=== PATIENT | female | born 1965 | race Caucasian/White ===

== ENCOUNTER 2018-07-24 15:59 | Inpatient (IN) | payer MEDICARE ==
[~2018-07-24] VITALS: Ht 167.6 cm; Wt 93.0 kg
[~2018-07-24 15:59] MED LIST: [UNRECOGNIZED DRUG - CODE] PO
[2018-07-24] MEDS ORDERED: EST2 PO (17:48)
[2018-07-24] MEDS ORDERED: OXYC30TA PO (17:48)
[2018-07-24] MEDS ORDERED: SPIR100T4 PO (17:49)
[2018-07-24] MEDS ORDERED: MORP15TA92 PO (17:49)
[2018-07-24] MEDS ORDERED: MORP-58 PO (17:50)
[2018-07-24] MEDS ORDERED: oxyCODONE (CR) 15 MG TAB [oxyCONTIN] PO ONE (18:30)
[2018-07-24] MEDS ORDERED: ACETAMINOPHEN 325 MG TAB PO PRN (19:30)
[2018-07-24] MEDS ORDERED: ONDANSETRON 4 MG INJ IV PRN (19:30)
[2018-07-24 21:37] VITALS: BP 85/54; PULSE 71; RESP 20
[2018-07-24] MEDS ORDERED: SOD CHLORIDE 0.9% 500 ML IV ONE (22:00)
[2018-07-24 23:40] VITALS: BP 83/50; PULSE 67; RESP 20
[2018-07-24] MEDS ORDERED: KETOROLAC 30 MG INJ IV ONE (23:46)
--- NOTE | 2018-07-24 23:51 | ERD ---
ER Documentation Chief Complaint Chief Complaint pt bib self with c/o fell asleep in car at 1 am, woke up 3 hrs ago HPI 53-year-old male to female transgender patient brought in by herself complaining of falling asleep in the car early Thursday morning at 1 AM. She remembers dropping a friend off at home and then feeling very tired. She pulled over to take a nap. She did not wake up until today afternoon. She does not know exactly what happened. She denies using any drugs, overdosing on her medications, or drinking that evening. When she woke up, she felt like she was having difficulty speaking and felt like her right side was more weak than usual. She is not feeling her normal self and she is not sure exactly why she slept for over 24 hours without waking up. He is presenting for evaluation for this. Denies any headache, chest pain, shortness of breath, fever or chills. ROS All systems reviewed and are negative except as per history of present illness. Medications Home Meds Reported Medications Morphine Sulfate* (Oramorph SR*) 30 Mg Tablet.sa, 30 MG PO Q12, TAB.SA 07/24/18 Spironolactone* (Spironolactone*) 100 Mg Tablet, 200 MG PO DAILY, TAB 07/24/18 Estradiol* (Estrace*) 2 Mg Tab, 8 MG PO DAILY, TAB 07/24/18 Oxycodone Hcl* (IR) (Oxycodone Hcl*) 30 Mg Tablet, 30 MG PO TID PRN for PAIN, TAB 07/24/18 Discontinued Reported Medications Morphine Sulfate* (Ms Contin*) 15 Mg Tablet.sa, 15 MG PO Q12, TAB 07/24/18 Allergies Allergies: Uncoded Allergies: ANTI NAUSEA MEDS (Allergy, Unknown, 07/24/18) PAIN MEDS (Allergy, Unknown, 07/24/18) codein (Allergy, Unknown, 07/24/18) PMhx/Soc History of Surgery: Yes (appendectomy, hernia mesh, gall bladder removal) Anesthesia Reaction: No Hx Neurological Disorder: Yes (Left craniotomy, traumatic subdural hematoma, reflex sympathetic dystrophy) Hx Respiratory Disorders: No Hx Cardiac Disorders: Yes (low BP 80's systolic) Hx Psychiatric Problems: No Hx Miscellaneous Medical Probl: Yes (sciatica, chronic pain) Hx Alcohol Use: No Hx Substance Use: No Hx Tobacco Use: No Smoking Status: Never smoker FmHx Family History: No diabetes Physical Exam Vitals Vital Signs Date Temp Pulse Resp B/P (MAP) Pulse Ox O2 O2 Flow FiO2 Time Delivery Rate 07/24/18 98.7 71 18 109/88 100 Room Air 18:20 (95) 07/24/18 82 18 106/67 97 Room Air 17:17 (80) 07/24/18 96.3 98 18 131/80 98 16:07 (97) Physical Exam Const: No acute distress Head: Atraumatic Eyes: Normal Conjunctiva, PERRLA, EOMI ENT: Normal External Ears, Nose and Mouth. Neck: Full range of motion. No meningismus. Resp: Clear to auscultation bilaterally Cardio: Regular rate and rhythm, no murmurs. 2+ distal pulses Abd: Soft, non tender, non distended. Normal bowel sounds Skin: No petechiae or rashes Back: No midline or flank tenderness Ext: No cyanosis, or edema Neur: Awake and alert, oriented x3. Mild right-sided facial droop with smi ling. Otherwise all other cranial nerves appear to be intact. Normal speech, no obvious dysarthria or expressive aphasia. Strength 5 out of 5 in left upper and lower extremity. Strength 3 out of 5 in right upper extremity. Strength 4 out of 5 in right lower extremity. Sensations grossly intact. Psych: Normal Mood and Affect Result Diagram: 07/24/18 1740 07/24/18 1740 Results 24 hrs Laboratory Tests Test 07/24/18 17:40 07/24/18 17:41 07/24/18 17:50 White Blood Count 10.1 10^3/ul Red Blood Count 4.14 10^6/ul Hemoglobin 12.9 g/dl Hematocrit 39.3 % Mean Corpuscular Volume 94.9 fl Mean Corpuscular Hemoglobin 31.2 pg Mean Corpuscular 32.8 g/dl Hemoglobin Concent Red Cell Distribution Width 13.9 % Platelet Count 363 10^3/UL Mean Platelet Volume 9.3 fl Immature Granulocytes % 0.800 % Neutrophils % 74.6 % Lymphocytes % 15.7 % Monocytes % 7.6 % Eosinophils % 1.0 % Basophils % 0.3 % Nucleated Red Blood Cells % 0.0 /100WBC Immature Granulocytes # 0.080 10^3/ul Neutrophils # 7.5 10^3/ul Lymphocytes # 1.6 10^3/ul Monocytes # 0.8 10^3/ul Eosinophils # 0.1 10^3/ul Basophils # 0.0 10^3/ul Nucleated Red Blood Cells # 0.0 10^3/ul Prothrombin Time 12.5 Sec Prothrombin Time Ratio 1.0 INR International 0.92 Normalized Ratio Activated Partial Thromboplast 27.5 Sec Time Sodium Level 138 mmol/L Potassium Level 3.5 mmol/L Chloride Level 99 mmol/L Carbon Dioxide Level 28 mmol/L Anion Gap 11 Blood Urea Nitrogen 13 mg/dl Creatinine 0.74 mg/dl Est Glomerular Filtrat > 60 mL/min Rate mL/min Glucose Level 92 mg/dl Hemoglobin A1c 5.2 % Calcium Level 9.8 mg/dl Troponin I < 0.012 ng/ml Triglycerides Level 115 mg/dl Cholesterol Level 144 mg/dl LDL Cholesterol, Calculated 93 mg/dl HDL Cholesterol 28 mg/dl Cholesterol/HDL Ratio 5.1 RATIO Bedside Glucose 98 mg/dL Urine Color YELLOW Urine Clarity SLIGHTLY CLOUDY Urine pH 5.0 Urine Specific [place] 1.008 Urine Ketones NEGATIVE mg/dL Urine Nitrite POSITIVE mg/dL Urine Bilirubin NEGATIVE mg/dL Urine Urobilinogen NEGATIVE mg/dL Urine Leukocyte Esterase 2+ Hallie/ul Urine Microscopic RBC 13 /HPF Urine Microscopic WBC 60 /HPF Urine Squamous Epithelial Cells FEW /HPF Urine Hemoglobin 2+ mg/dL Urine Glucose NEGATIVE mg/dL Urine Total Protein NEGATIVE mg/dl Urine Opiates Screen Positive Urine Barbiturates Negative Urine Amphetamines Screen Negative Urine Benzodiazepines Screen Positive Urine Cocaine Screen Negative Urine Cannabinoids Negative Current Medications Medications Dose Sig/Rusty Start Time Status Last (Trade) Ordered Route PRN Stop Time Admin Dose Reason Admin Oxycodone 30 mg ONCE ONCE 07/24/18 DC 07/24/18 HCl PO 18:30 18:40 (Oxycontin) 07/24/18 18:31 Procedures/MDM EMERGENT LABS AND DIAGNOSTIC STUDIES: Lab Results above were reviewed and interpreted by me. CBC: no anemia or evidence of infection CMP: No evidence of electrolyte abnormality, renal failure, hypoglycemia, liver failure, or biliary obstruction Troponin within normal limits, not indicative of cardiac ischemia UA: Findings concerning for possible infection. Patient asymptomatic Urine drug screen positive for benzos and opioids 12-lead EKG was interpreted by Miko Clarke MD: Normal Sinus Rhythm Normal axis Normal intervals No acute ST or T wave changes suggestive of acute ischemia or STEMI. Radiology Results as interpreted by Radiology below were reviewed by Brenda Clarke MD: CT head shows no acute abnormalities, specifically no stroke Chest x-ray shows no acute abnormalities Initial Nursing notes reviewed. Previous Medical Records requested via the Electronic Health Record. EMERGENCY DEPARTMENT COURSE / MEDICAL DECISION MAKING: Patient presents with complaints of sleeping for over 24 hours and right-sided weakness. Since her last known well was well over 24 hours ago, code stroke was not activated. Patient is certainly not a TPA or interventional candidate. She does have some right-sided weakness on exam. CT of the head however did not ricardo w any acute stroke. If she did have a stroke 1 day ago, I would expect to see this on the CT. Otherwise her labs did not show any other significant abnormalities. I do still think the patient would benefit from a MRI and do not feel she is safe for discharge at this time. She will be admitted for further workup. Accepting Care Team: Current data and ongoing care discussed. Time: Time of admission Primary Provider: Dr. Kolb Departure Diagnosis: Primary Impression: Transient alteration of awareness Additional Impression: Right sided weakness Condition: Fair JOSUE CLARKE MD Jul 24, 2018 23:51
--- NOTE | 2018-07-24 23:53 | HP ---
Date/Time of Note Date/Time of Note DATE: 07/24/18 TIME: 23:53 Assessment/Plan VTE Prophylaxis Pharmacological prophylaxis: heparin Lines/Catheters IV Catheter Type (from Nrsg): Saline Lock Assessment/Plan Assessment/Plan 1. Left-sided weakness, excessive sleepiness -Patient reported dropping of her friend and taking or not because was feeling really tired. She woke up 24 hours later in the car. She does take narcotic pain medications. No weakness is probably because she may have slept on one side of her body for prolonged time -Head CT shows old craniotomy, otherwise no acute findings -Monitor in the telemetry unit -will consider brain MRI -PT eval 2. Hypotension: Patient reported that her systolic blood pressure usually runs in the 80s. Patient however presented to ER with a blood pressure of 131/80 -will give IV fluid for now 3. History of SDH, status post left-sided craniotomy: No acute issue. Head CT stable 4. UTI: antibiotic,, IV fluid, follow-up culture results 5. Chronic pain: Continue her home meds Result Diagram: 07/24/18 1740 07/24/18 1740 Results 24hrs Laboratory Tests Test 07/24/18 17:40 07/24/18 17:41 07/24/18 17:50 White Blood Count 10.1 Red Blood Count 4.14 L Hemoglobin 12.9 Hematocrit 39.3 Mean Corpuscular Volume 94.9 Mean Corpuscular Hemoglobin 31.2 Mean Corpuscular 32.8 Hemoglobin Concent Red Cell Distribution Width 13.9 Platelet Count 363 Mean Platelet Volume 9.3 Immature Granulocytes % 0.800 H Neutrophils % 74.6 Lymphocytes % 15.7 Monocytes % 7.6 Eosinophils % 1.0 Basophils % 0.3 Nucleated Red Blood Cells % 0.0 Immature Granulocytes # 0.080 H Neutrophils # 7.5 Lymphocytes # 1.6 Monocytes # 0.8 Eosinophils # 0.1 Basophils # 0.0 Nucleated Red Blood Cells # 0.0 Prothrombin Time 12.5 Prothrombin Time Ratio 1.0 INR International 0.92 Normalized Ratio Activated Partial Thromboplast 27.5 Time Sodium Level 138 Potassium Level 3.5 Chloride Level 99 Carbon Dioxide Level 28 Anion Gap 11 Blood Urea Nitrogen 13 Creatinine 0.74 Est Glomerular Filtrat > 60 Rate mL/min Glucose Level 92 Hemoglobin A1c 5.2 Calcium Level 9.8 Troponin I < 0.012 Triglycerides Level 115 Cholesterol Level 144 LDL Cholesterol, Calculated 93 HDL Cholesterol 28 L Cholesterol/HDL Ratio 5.1 Bedside Glucose 98 Urine Color YELLOW Urine Clarity SLIGHTLY CLOUDY A Urine pH 5.0 Urine Specific [place] 1.008 Urine Ketones NEGATIVE Urine Nitrite POSITIVE A Urine Bilirubin NEGATIVE Urine Urobilinogen NEGATIVE Urine Leukocyte Esterase 2+ H Urine Microscopic RBC 13 H Urine Microscopic WBC 60 H Urine Squamous FEW Epithelial Cells Urine Hemoglobin 2+ H Urine Glucose NEGATIVE Urine Total Protein NEGATIVE Urine Opiates Screen Positive Urine Barbiturates Negative Urine Amphetamines Screen Negative Urine Benzodiazepines Screen Positive Urine Cocaine Screen Negative Urine Cannabinoids Negative HPI/ROS Admit Date/Time Admit Date/Time Jul 24, 2018 at 19:13 Hx of Present Illness This is a 53-year-old male to female transgender with a history of subdural hematoma status post left craniotomy, sciatica, chronic pain, chronic hypotension. Patient presents the ER complaining of right-sided weakness. She said that she dropped of friend and wanted to take a nap because she was very tired. She woke up in her car 24 hours later. Denied slurred speech, facial droop, seizure-like activity. She does however complain of generalized body ache and was asking to take home narcotics. When she initially presented to ER, blood pressure was 131/80, however SBP has since for the most part been in the 80s. She said her systolic blood pressure usually runs in the 80s. Head CT shows old craniotomy otherwise no acute findings. PMH/Family/Social Past Medical History Past Surgical History Past Surgical Hx: other (see hpi) Family History Significant Family History: other Social History Smoking Status: Unknown if ever smoked Drug Use: other Exam Constitutional: other (no acute distress) Eyes: EOMI, PERRL Neck: supple Respiratory: normal air movement Cardiovascular: nl pulses Gastrointestinal: soft Extremities: normal pulses Medications Current Medications Ondansetron HCl (Zofran Inj) 4 mg ER BRIDGE PRN IV NAUSEA/VOMITING; Start 07/24 at 19:30; Stop 07/25/18 at 19:29 Acetaminophen (Tylenol Tab) 650 mg ER BRIDGE PRN PO .MILD PAIN 1-3 OR TEMP; Start 07/24/18 at 19:30; Stop 07/25/18 at 19:29 Coded Allergies: codeine (Unverified Allergy, Unknown, 07/25/18) Uncoded Allergies: ANTI NAUSEA MEDS (Allergy, Unknown, 07/24/18) PAIN MEDS (Allergy, Unknown, 07/24/18) codein (Allergy, Unknown, 07/24/18) Social History Smoking Status: Never smoker Exam/Review of Systems Vital Signs Vitals Vital Signs Date Temp Pulse Resp B/P (MAP) Pulse Ox O2 O2 Flow FiO2 Time Delivery Rate 07/24/18 98.4 67 20 83/50 (61) 96 Room Air 23:40 JUVE PHAN MD Jul 24, 2018 23:53
[2018-07-25] VITALS (11 sets, daily range): BP systolic 84–112; BP diastolic 49–63; PULSE 50–82; RESP 16–18; Ht 167.6 cm; Wt 93.0 kg
[2018-07-25] MEDS ORDERED: oxyCODONE (CR) 15 MG TAB [oxyCONTIN] PO ONE ×2 (01:30)
[2018-07-25] MEDS ORDERED: ONDANSETRON 4 MG INJ IV PRN (04:00)
[2018-07-25] MEDS ORDERED: ACETAMINOPHEN 325 MG TAB PO PRN (04:00)
[2018-07-25] MEDS ORDERED: NACL 0.9% 3 ML SYG IV SCH (04:00)
--- NOTE | 2018-07-25 07:59 | CONDCODE ---
Medicare Criteria-> INP to OBS Patient still in hospital: Yes SI/IS Criteria met: Yes Attending MD agrees w/change: Yes Order entered in Pt. record: Yes Pt. does not meet Inp Criteria: Yes Medicare Inp->Obs Criteria met: Yes UR Phys Advisor eSign required: Yes I personally scribed for ELA MCKNIGHT ([email or web address]) on 07/25/18 at 07:59. Electronically submitted by Jose David Hitchcock Cmt ([facility]). ELA MCKNIGHT Jul 25, 2018 07:59
--- NOTE | 2018-07-25 07:59 | CONDCODE ---
Medicare Criteria-> INP to OBS Patient still in hospital: Yes SI/IS Criteria met: Yes Attending MD agrees w/change: Yes Order entered in Pt. record: Yes Pt. does not meet Inp Criteria: Yes Medicare Inp->Obs Criteria met: Yes UR Phys Advisor eSign required: Yes I personally scribed for YAHAIRA PIMENTEL MD ([email or web address]) on 07/25/18 at 07:59. Electronically submitted by Jose David Hitchcock [facility] ([email or web address]). YAHAIRA PIMENTEL MD Jul 25, 2018 07:59
[2018-07-25] MEDS: CEFTRIAXONE 1 GM/50 ML (PMX) 50 ML IVPB SCH (08:43)
[2018-07-25] MEDS: SPIRONOLACTONE 50 MG TAB PO SCH (08:44)
[2018-07-25] MEDS: ASPIRIN 81 MG TAB PO SCH (08:44)
[2018-07-25] MEDS ORDERED: morphine (ER) 30 MG TAB PO SCH (09:00)
[2018-07-25] MEDS ORDERED: ESTRADIOL 1 MG TAB PO SCH (09:00)
--- NOTE | 2018-07-25 13:52 | PN ---
Date/Time of Note Date/Time of Note DATE: 07/25/18 TIME: 13:43 Assessment/Plan VTE Prophylaxis Risk score (from Nsg)>0 risk: 6 SCD applied (from Nsg): Yes Pharmacological prophylaxis: heparin Lines/Catheters IV Catheter Type (from Nrsg): Saline Lock Assessment/Plan Problems: (1) Right sided weakness Status: Acute Comment: Patient has unilateral weakness which is still persisting. MRI scan is pending and the patient is requesting sedatives to go through the MRI scan specifically requesting 4 mg of lorazepam IV push. I have counseled him that that is a bit more than we would use here but I will give some in preparation for the MRI scan. Regarding the underlying issue assuming the MRI scan is unrevealing and this would be consistent with what had previously been referred to you for Ms. 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 Physical therapy to try and get the patient moving (2) Gender identity disorder in adult Status: Chronic Comment: Patient is undergone gender reassignment surgery both upper and lower. See below (3) [id number] transgender person Status: Chronic Comment: Patient is on an unusual dosing of estrogen and spironolactone as well as on chronic narcotics for chronic pain syndrome. It should be noted that the chronic narcotics for chronic pain syndrome are well-known for shutting off the pituitary FSH LH drive on the gonads of either gender. In addition to this the dosing of spironolactone is done in somebody who still has a manufacturing source of testosterone in this patient is already had an orchiectomy. The dosage of estradiol is being given as the dosage is used in somebody shut off the pituitary FSH LH and some but he still has testicles. That is not the case in this individual I do not believe that this dosing is appropriate. Before I make formalized changes to this and get a check a serum testosterone level however I believe the reason this patient still is. Growth is because they spent so many years as a genetic male that there are hair follicles were sensitized the only way to stop that would be with laser therapy. There is some details to sort out here (4) Chronic pain syndrome Status: Chronic Comment: Under the care of Dr. Christy Jamil as an outpatient. Try to continue the same regimen roughly. Please note the patient reports that they get monthly epidural shots (5) Chronic low back pain with sciatica Status: Chronic Comment: Patient reports they have already been tried on topiramate and gabapentin. Consider for trial of lamotrigine Qualifiers: Back pain laterality: bilateral Sciatica laterality: bilateral sciatica Qualified Codes: M54.42 - Lumbago with sciatica, left side; M54.41 - Lumbago with sciatica, right side; G89.29 - Other chronic pain (6) Chronic neck pain Status: Chronic Comment: Noted and on treatment (7) Osteoarthritis of knees, bilateral Comment: Noted Qualifiers: Osteoarthritis type: primary Qualified Codes: M17.0 - Bilateral primary osteoarthritis of knee (8) Reflex sympathetic dystrophy of left upper extremity Status: Chronic Comment: Patient reports failure with topiramate and gabapentin. We will go ahead and try lamotrigine (9) UTI (urinary tract infection) Status: Acute Comment: Patient was admitted and documented to have UTI on admission by the emergency room doctor but no cultures were sent. We will treat with antibiotics Qualifiers: Urinary tract infection type: acute cystitis Hematuria presence: without hematuria Qualified Codes: N30.00 - Acute cystitis without hematuria Result Diagram: 07/25/18 0515 07/25/18 0515 Results 24hrs Laboratory Tests Test 07/24/18 17:40 07/24/18 17:41 07/24/18 17:50 07/25/18 05:15 White Blood Count 10.1 6.9 # Red Blood Count 4.14 L 3.87 L Hemoglobin 12.9 12.0 Hematocrit 39.3 37.7 Mean Corpuscular 94.9 97.4 Volume Mean Corpuscular 31.2 31.0 Hemoglobin Mean Corpuscular 32.8 31.8 L Hemoglobin Concen t Red Cell 13.9 14.0 Distribution Width Platelet Count 363 329 Mean Platelet 9.3 9.7 Volume Immature 0.800 H 0.900 H Granulocytes % Neutrophils % 74.6 63.1 Lymphocytes % 15.7 25.3 Monocytes % 7.6 8.4 Eosinophils % 1.0 1.9 Basophils % 0.3 0.4 Nucleated Red 0.0 0.0 Blood Cells % Immature 0.080 H 0.060 H Granulocytes # Neutrophils # 7.5 4.4 Lymphocytes # 1.6 1.7 Monocytes # 0.8 0.6 Eosinophils # 0.1 0.1 Basophils # 0.0 0.0 Nucleated Red 0.0 0.0 Blood Cells # Prothrombin Time 12.5 Prothrombin Time 1.0 Ratio INR International 0.92 Normalized Ratio Activated 27.5 Partial Thrombopl ast Time Sodium Level 138 138 Potassium Level 3.5 3.9 Chloride Level 99 107 Carbon Dioxide 28 26 Level Anion Gap 11 5 Blood Urea 13 13 Nitrogen Creatinine 0.74 0.76 Est Glomerular > 60 > 60 Filtrat Rate mL/min Glucose Level 92 101 Hemoglobin A1c 5.2 5.1 Calcium Level 9.8 8.8 Troponin I < 0.012 < 0.012 Triglycerides 115 85 Level Cholesterol Level 144 122 LDL Cholesterol, 93 81 Calculated HDL Cholesterol 28 L 24 L Cholesterol/HDL 5.1 5.0 Ratio Bedside Glucose 98 Urine Color YELLOW Urine Clarity SLIGHTLY CLOUDY A Urine pH 5.0 Urine Specific 1.008 [place] Urine Ketones NEGATIVE Urine Nitrite POSITIVE A Urine Bilirubin NEGATIVE Urine NEGATIVE Urobilinogen Urine Leukocyte 2+ H Esterase Urine Microscopic 13 H RBC Urine Microscopic 60 H WBC Urine Squamous FEW Epithelial Cells Urine Hemoglobin 2+ H Urine Glucose NEGATIVE Urine Total NEGATIVE Protein Urine Opiates Positive Screen Urine Negative Barbiturates Urine Negative Amphetamines Screen Urine Positive Benzodiazepines Screen Urine Cocaine Negative Screen Urine Negative Cannabinoids Magnesium Level 2.0 Total Bilirubin 0.2 Direct Bilirubin 0.00 Indirect 0.2 Bilirubin Aspartate Amino 14 L Transf (AST/SGOT) Alanine 17 Aminotransferase (ALT/SGPT) Alkaline 49 Phosphatase Creatine Kinase 50 Creatine Kinase 0.6 Index Creatinine Kinase 0.32 MB (Mass) Total Protein 5.8 L Albumin 3.3 Globulin 2.50 Albumin/Globulin 1.32 Ratio Thyroid 0.579 Stimulating Hormone (TSH) Test 07/25/18 10:30 Creatine Kinase 42 Creatine Kinase 0.5 Index Creatinine Kinase < 0.22 MB (Mass) Troponin I < 0.012 Subjective 24 Hr Interval Summary Free Text/Dictation Patient reports that she is having persistent pain from the chronic pain syndrome, as well as inability to adequately move and ambulate the side of body affected by the admission event Constitutional: no complaints (Denies fevers chills or sweats) Respiratory: no complaints (No cough no wheezing no shortness of breath) Cardiovascular: no complaints (Chest pain no palpitations no PND no orthopnea) Gastrointestinal: no complaints Genitourinary: no complaints Musculoskeletal: back pain (Chronic back pain, chronic neck pain), neck pain, other (Chronic left shoulder pain with reflex sympathetic dystrophy) Neurologic: other (Unilateral weakness without change) Exam/Review of Systems Exam Vitals Vital Signs Date Temp Pulse Resp B/P (MAP) Pulse Ox O2 O2 Flow FiO2 Time Delivery Rate 07/25/18 50 12:12 07/25/18 97.8 16 95/63 (74) 100 11:32 07/24/18 Room Air 23:40 Intake and Output 07/24/18 07/24/18 07/25/18 1515:00 23:00 07:00 IntakeIntake Total 1300 ml BalanceBalance 1300 ml Constitutional: alert, oriented Head: normocephalic, atraumatic Neck: supple, non-tender Respiratory: clear to auscultation, normal air movement, other (Breast implants noted) Cardiovascular: regular rate and rhythm, nl pulses Gastrointestinal: soft, nl liver, spleen, non-tender Genitourinary - Female: other Results Results 24hrs Laboratory Tests Test 07/24/18 17:40 07/24/18 17:41 07/24/18 17:50 07/25/18 05:15 White Blood Count 10.1 6.9 # Red Blood Count 4.14 L 3.87 L Hemoglobin 12.9 12.0 Hematocrit 39.3 37.7 Mean Corpuscular 94.9 97.4 Volume Mean Corpuscular 31.2 31.0 Hemoglobin Mean Corpuscular 32.8 31.8 L Hemoglobin Concen t Red Cell 13.9 14.0 Distribution Width Platelet Count 363 329 Mean Platelet 9.3 9.7 Volume Immature 0.800 H 0.900 H Granulocytes % Neutrophils % 74.6 63.1 Lymphocytes % 15.7 25.3 Monocytes % 7.6 8.4 Eosinophils % 1.0 1.9 Basophils % 0.3 0.4 Nucleated Red 0.0 0.0 Blood Cells % Immature 0.080 H 0.060 H Granulocytes # Neutrophils # 7.5 4.4 Lymphocytes # 1.6 1.7 Monocytes # 0.8 0.6 Eosinophils # 0.1 0.1 Basophils # 0.0 0.0 Nucleated Red 0.0 0.0 Blood Cells # Prothrombin Time 12.5 Prothrombin Time 1.0 Ratio INR International 0.92 Normalized Ratio Activated 27.5 Partial Thrombopl ast Time Sodium Level 138 138 Potassium Level 3.5 3.9 Chloride Level 99 107 Carbon Dioxide 28 26 Level Anion Gap 11 5 Blood Urea 13 13 Nitrogen Creatinine 0.74 0.76 Est Glomerular > 60 > 60 Filtrat Rate mL/min Glucose Level 92 101 Hemoglobin A1c 5.2 5.1 Calcium Level 9.8 8.8 Troponin I < 0.012 < 0.012 Triglycerides 115 85 Level Cholesterol Level 144 122 LDL Cholesterol, 93 81 Calculated HDL Cholesterol 28 L 24 L Cholesterol/HDL 5.1 5.0 Ratio Bedside Glucose 98 Urine Color YELLOW Urine Clarity SLIGHTLY CLOUDY A Urine pH 5.0 Urine Specific 1.008 [place] Urine Ketones NEGATIVE Urine Nitrite POSITIVE A Urine Bilirubin NEGATIVE Urine NEGATIVE Urobilinogen Urine Leukocyte 2+ H Esterase Urine Microscopic 13 H RBC Urine Microscopic 60 H WBC Urine Squamous FEW Epithelial Cells Urine Hemoglobin 2+ H Urine Glucose NEGATIVE Urine Total NEGATIVE Protein Urine Opiates Positive Screen Urine Negative Barbiturates Urine Negative Amphetamines Screen Urine Positive Benzodiazepines Screen Urine Cocaine Negative Screen Urine Negative Cannabinoids Magnesium Level 2.0 Total Bilirubin 0.2 Direct Bilirubin 0.00 Indirect 0.2 Bilirubin Aspartate Amino 14 L Transf (AST/SGOT) Alanine 17 Aminotransferase (ALT/SGPT) Alkaline 49 Phosphatase Creatine Kinase 50 Creatine Kinase 0.6 Index Creatinine Kinase 0.32 MB (Mass) Total Protein 5.8 L Albumin 3.3 Globulin 2.50 Albumin/Globulin 1.32 Ratio Thyroid 0.579 Stimulating Hormone (TSH) Test 07/25/18 10:30 Creatine Kinase 42 Creatine Kinase 0.5 Index Creatinine Kinase < 0.22 MB (Mass) Troponin I < 0.012 Medications Medication Current Medications Ondansetron HCl (Zofran Inj) 4 mg ER BRIDGE PRN IV NAUSEA/VOMITING; Start 07/24/18 at 19:30; Stop 07/25/18 at 19:29 Acetaminophen (Tylenol Tab) 650 mg ER BRIDGE PRN PO .MILD PAIN 1-3 OR TEMP; Start 07/24/18 at 19:30; Stop 07/25/18 at 19:29 IV Flush (NS 3 ml) 3 ml PER PROTOCOL IV ; Start 07/25/18 at 04:00 Ondansetron HCl (Zofran Inj) 4 mg Q6H PRN IV NAUSEA/VOMITING; Start 07/25/18 at 04:00 Aspirin (Aspirin) 81 mg DAILY PO Last administered on 07/25/18at 08:44; Admin Dose 81 MG; Start 07/25/18 at 09:00 Acetaminophen (Tylenol Tab) 650 mg Q6H PRN PO .PAIN 1-3 OR TEMP; Start 07/25/18 at 04:00 Morphine Sulfate (Ms Contin (Er)) 30 mg Q12 PO ; Start 07/25/18 at 09:00 Spironolactone (Aldactone) 200 mg DAILY PO Last administered on 07/25/18at 08:44; Admin Dose 200 MG; Start 07/25/18 at 09:00 Estradiol (Estrace) 8 mg DAILY PO Last administered on 07/25/18at 08:45; Admin Dose 8 MG; Start 07/25/18 at 09:00 Ceftriaxone Sodium 50 ml @ 100 mls/hr DAILY IVPB Last administered on 07/25/18at 08:43; Admin Dose 100 MLS/HR; Start 07/25/18 at 09:00 SHAHAB VARGAS MD Jul 25, 2018 13:52
[2018-07-25] MEDS: LAMOTRIGINE 25 MG TAB PO SCH ×2 (14:59→20:37)
[2018-07-25] MEDS ORDERED: FOSFOMYCIN 3 GM PACKET PO ONE (15:00)
[2018-07-25] MEDS: oxyCODONE (CR) 15 MG TAB [oxyCONTIN] PO SCH ×2 (15:00→20:38)
[2018-07-25] MEDS: LORAZEPAM 2 MG INJ IV SCH (15:20)
[2018-07-25] MEDS: oxyCODONE 15 MG TAB PO PRN ×2 (17:55→22:10)
[2018-07-25] MEDS: ESTRADIOL 1 MG TAB PO SCH (20:37)
[2018-07-26] VITALS (10 sets, daily range): BP systolic 98–112; BP diastolic 54–59; PULSE 49–84; RESP 18
[2018-07-26] MEDS: oxyCODONE 15 MG TAB PO PRN ×4 (06:06→23:56)
[2018-07-26] MEDS: CEFTRIAXONE 1 GM/50 ML (PMX) 50 ML IVPB SCH (08:32)
[2018-07-26] MEDS: LAMOTRIGINE 25 MG TAB PO SCH ×2 (08:33→20:21)
[2018-07-26] MEDS: SPIRONOLACTONE 50 MG TAB PO SCH (08:33)
[2018-07-26] MEDS: ASPIRIN 81 MG TAB PO SCH (08:33)
[2018-07-26] MEDS: ESTRADIOL 1 MG TAB PO SCH ×2 (08:34→20:20)
[2018-07-26] MEDS: oxyCODONE (CR) 15 MG TAB [oxyCONTIN] PO SCH ×2 (08:36→20:21)
[2018-07-26] MEDS: LORAZEPAM 2 MG INJ IV SCH (14:00)
--- NOTE | 2018-07-26 14:05 | PN ---
Date/Time of Note Date/Time of Note DATE: 07/26/18 TIME: 13:52 Assessment/Plan VTE Prophylaxis Risk score (from Ns)>0 risk: 7 SCD applied (from Ns): Yes Pharmacological prophylaxis: LMWH Lines/Catheters IV Catheter Type (from Nrs): Saline Lock Assessment/Plan Assessment/Plan 1. Right sided weakness, unremarkable CT and MRI brain, neurology consultation, echo/carotid US 2. Sinus bradycardia, TSH 3. UTI, treated with fosfomycin 4. H/o head trauma, status post left-sided craniotomy: No acute issue 5. Male to female transgender person, on estrogen and spironolactone 6. Chronic pain syndrome, Under the care of Dr. Christy Jamil as an outpatient Result Diagram: 07/26/1853807/26/1839 Results 24hrs Laboratory Tests Test 07/26/18 05:39 White Blood Count 7.8 Red Blood Count 4.05 L Hemoglobin 12.5 Hematocrit 39.2 Mean Corpuscular Volume 96.8 Mean Corpuscular Hemoglobin 30.9 Mean Corpuscular Hemoglobin Concent 31.9 L Red Cell Distribution Width 13.8 Platelet Count 325 Mean Platelet Volume 9.6 Immature Granulocytes % 0.800 H Neutrophils % 63.9 Lymphocytes % 24.7 Monocytes % 7.8 Eosinophils % 2.3 Basophils % 0.5 Nucleated Red Blood Cells % 0.0 Immature Granulocytes # 0.060 H Neutrophils # 5.0 Lymphocytes # 1.9 Monocytes # 0.6 Eosinophils # 0.2 Basophils # 0.0 Nucleated Red Blood Cells # 0.0 Sodium Level 139 Potassium Level 4.2 Chloride Level 104 Carbon Dioxide Level 26 Anion Gap 9 Blood Urea Nitrogen 16 Creatinine 0.70 Est Glomerular Filtrat Rate mL/min > 60 Glucose Level 84 Calcium Level 9.2 Phosphorus Level 4.3 Magnesium Level 1.9 Subjective 24 Hr Interval Summary Free Text/Dictation still with right side weakness Exam/Review of Systems Exam Vitals Vital Signs Date Temp Pulse Resp B/P (MAP) Pulse Ox O2 O2 Flow FiO2 Time Delivery Rate 07/26/18 49 12:00 07/26/18 97.6 18 101/55 95 Room Air 07:22 (70) Intake and Output 07/25/18 07/25/18 07/26/18 1515:00 23:00 07:00 IntakeIntake Total 1250 ml 480 ml BalanceBalance 1250 ml 480 ml Constitutional: alert, oriented, well developed, obese Head: normocephalic, atraumatic Eyes: nl conjunctiva, EOMI, nl lids, PERRL ENMT: nl external ears & nose, nl lips & teeth, nl nasal mucosa & septum Neck: supple, non-tender Respiratory: clear to auscultation, normal air movement; No congested cough, No crackles/rales, No diminished breath sounds, No intercostal retraction, No labored breathing, No respirations, No tactile fremitus, No wheezing, No other Cardiovascular: regular rate and rhythm, nl pulses; No bruits, No diastolic murmur, No edema, No gallop, No irregular rhythm, No jugular venous distention (JVD), No murmurs/extra sounds, No rub, No systolic murmur, No S3, No S4, No other Gastrointestinal: soft, nl liver, spleen, non-tender Musculoskeletal: nl extremities to inspection Extremities: normal pulses; No calf tenderness, No cyanosis, No clubbing, No edema, No pitting pedal edema, No palpable cord, No tenderness, No other Neurological: [employer] II-XII intact, nl mental status, nl speech, other (4/5 RUE, 3/5 RLE) Results Results 24hrs Laboratory Tests Test 07/26/18 05:39 White Blood Count 7.8 Red Blood Count 4.05 L Hemoglobin 12.5 Hematocrit 39.2 Mean Corpuscular Volume 96.8 Mean Corpuscular Hemoglobin 30.9 Mean Corpuscular Hemoglobin Concent 31.9 L Red Cell Distribution Width 13.8 Platelet Count 325 Mean Platelet Volume 9.6 Immature Granulocytes % 0.800 H Neutrophils % 63.9 Lymphocytes % 24.7 Monocytes % 7.8 Eosinophils % 2.3 Basophils % 0.5 Nucleated Red Blood Cells % 0.0 Immature Granulocytes # 0.060 H Neutrophils # 5.0 Lymphocytes # 1.9 Monocytes # 0.6 Eosinophils # 0.2 Basophils # 0.0 Nucleated Red Blood Cells # 0.0 Sodium Level 139 Potassium Level 4.2 Chloride Level 104 Carbon Dioxide Level 26 Anion Gap 9 Blood Urea Nitrogen 16 Creatinine 0.70 Est Glomerular Filtrat Rate mL/min > 60 Glucose Level 84 Calcium Level 9.2 Phosphorus Level 4.3 Magnesium Level 1.9 Medications Medication Current Medications IV Flush (NS 3 ml) 3 ml PER PROTOCOL IV ; Start 07/25/18 at 04:00 Ondansetron HCl (Zofran Inj) 4 mg Q6H PRN IV NAUSEA/VOMITING; Start 07/25/18 at 04:00 Aspirin (Aspirin) 81 mg DAILY PO Last administered on 07/26/18 08:33; Admin Dose 81 MG; Start 07/25/18 at 09:00 Acetaminophen (Tylenol Tab) 650 mg Q6H PRN PO .PAIN 1-3 OR TEMP; Start 07/25/18 at 04:00 Spironolactone (Aldactone) 200 mg DAILY PO Last administered on 07/26/18 08:33; Admin Dose 200 MG; Start 07/25/18 at 09:00 Ceftriaxone Sodium 50 ml @ 100 mls/hr DAILY IVPB Last administered on 07/26/18 08:32; Admin Dose 100 MLS/HR; Start 07/25/18 at 09:00 Estradiol (Estrace) 1 mg BID PO Last administered on 07/26/18 08:34; Admin Dose 1 MG; Start 07/25/18 at 21:00 Lorazepam (Ativan) 2 mg ONCE IV Last administered on 07/25/18 15:20; Admin Dose 2 MG; Start 07/25/18 at 14:00; Stop 07/26/18 at 23:00 Lamotrigine (Lamictal) 25 mg BID PO Last administered on 07/26/18 08:33; Admin Dose 25 MG; Start 07/25/18 at 14:00 Oxycodone HCl (Roxicodone) 15 mg Q4H PRN PO MODERATE PAIN LEVEL 4-6 Last administered on 07/26/18 11:04; Admin Dose 15 MG; Start 07/25/18 at 14:30 Oxycodone HCl (Oxycontin) 30 mg BID PO Last administered on 07/26/18 08:36; Admin Dose 30 MG; Start 07/25/18 at 14:30 RM BUSTILLOS MD Jul 26, 2018 14:02
[2018-07-26] MEDS: ENOXAPARIN 40 MG/0.4 ML SYG SC SCH (15:54)
--- NOTE | 2018-07-26 16:00 | CONS ---
Assessment/Plan Assessment/Plan Hospital Course 53 yo transgender female w/ prior Hx of traumatic subdural, and other comorbidities, who presents for evaluation of right sided weakness.. The clinical picture raises concern for seizure w/ Lennox's paralysis.. MRI brain w/ reassuringly negative for acute intracranial pathology, though notable for remote post-op changes.. UTI+ UDS + benzos and opiates P: Clarify benzo use Hx EEG to evaluate for epileptiform activity Ativan iv prn prolonged seizure or cluster PT/OT as necessary Continued medical management per primary Will follow Consultation Date/Type/Reason Admit Date/Time Jul 24, 2018 at 19:13 Type of Consult Neurology Reason for Consultation R sided weakness Requesting Provider: RM BUSTILLOS MD Date/Time of Note DATE: 07/26/18 TIME: 16:00 Hx of Present Illness 53 yo F with hx of L craniotomy s/p tSDH, sciatica, chronic low back and BL knee pain, and other comorbidities who presented to the ED with c/o R sided weakness. History was obtained from pt and chart review. The pt confirms the story below. She also endorses severe R sided weakness and lower back pain. Denies headache, neck pain, paresthesias. lethargy, confusion, changes in vision or speech. Denies recent illness, head trauma, or hx of seizures. Endorses morphine PO and oxycodone PO use daily for chronic pain. Denies any similar episode in the past. It is additionally elsewhere noted: Hx of Present Illness This is a 53-year-old male to female transgender with a history of subdural hematoma status post left craniotomy, sciatica, chronic pain, chronic hypotension. Patient presents the ER complaining of right-sided weakness. She said that she dropped of friend and wanted to take a nap because she was very tired. She woke up in her car 24 hours later. Denied slurred speech, facial droop, seizure-like activity. She does however complain of generalized body ache and was asking to take home narcotics. When she initially presented to ER, blood pressure was 131/80, however SBP has since for the most part been in the 80s. She said her systolic blood pressure usually runs in the 80s. Head CT shows old craniotomy otherwise no acute findings. negative unless noted otherwise in HPI Exam/Review of Systems Exam Vitals Vital Signs Date Temp Pulse Resp B/P (MAP) Pulse Ox O2 O2 Flow FiO2 Time Delivery Rate 07/26/18 97.6 58 18 105/58 99 Room Air 15:25 (74) Intake and Output 07/25/18 07/25/18 07/26/18 1515:00 23:00 07:00 IntakeIntake Total 1250 ml 480 ml BalanceBalance 1250 ml 480 ml Exam PE: Gen Appearance: No Apparent Distress HEENT: Normocephalic Cardiovascular: Regular rate Lungs: Clear bilaterally Abdomen: Soft Extremities: Dry NE: The patient was alert and oriented. Language was normal. Fund of knowledge was normal. Pupils were equal and reactive to light. There was no afferent pupillary defect. Visual mock were normal. Funduscopic examination was limited. Extra-ocular movements were full. Ptosis was absent. There was no nystagmus. Facial sensation was normal. Face was symmetric with normal strength. Hearing was intact. Palate movements were normal. Neck strength was normal. There was normal tongue bulk and speed of movement. Tone was normal. Muscle bulk was normal. I did not see fasciculations. Arms and legs were severely weak on the R. Vibration sensation was normal. Temperature and pinprick sensation was normal. Rapid alternating movements were normal. There was no dysmetria. There was no intention tremor. Gait was deferred due to bedrest. Arm and leg reflexes were symmetric. Rosales's sign was absent. Plantar responses were flexor. Results Result Diagram: 07/26/18 0539 07/26/18 0539 Results 24hrs Laboratory Tests Test 07/26/18 05:39 White Blood Count 7.8 Red Blood Count 4.05 L Hemoglobin 12.5 Hematocrit 39.2 Mean Corpuscular Volume 96.8 Mean Corpuscular Hemoglobin 30.9 Mean Corpuscular Hemoglobin Concent 31.9 L Red Cell Distribution Width 13.8 Platelet Count 325 Mean Platelet Volume 9.6 Immature Granulocytes % 0.800 H Neutrophils % 63.9 Lymphocytes % 24.7 Monocytes % 7.8 Eosinophils % 2.3 Basophils % 0.5 Nucleated Red Blood Cells % 0.0 Immature Granulocytes # 0.060 H Neutrophils # 5.0 Lymphocytes # 1.9 Monocytes # 0.6 Eosinophils # 0.2 Basophils # 0.0 Nucleated Red Blood Cells # 0.0 Sodium Level 139 Potassium Level 4.2 Chloride Level 104 Carbon Dioxide Level 26 Anion Gap 9 Blood Urea Nitrogen 16 Creatinine 0.70 Est Glomerular Filtrat Rate mL/min > 60 Glucose Level 84 Calcium Level 9.2 Phosphorus Level 4.3 Magnesium Level 1.9 Thyroid Stimulating Hormone (TSH) 0.627 Medications Medication Current Medications IV Flush (NS 3 ml) 3 ml PER PROTOCOL IV ; Start 07/25/18 at 04:00 Ondansetron HCl (Zofran Inj) 4 mg Q6H PRN IV NAUSEA/VOMITING; Start 07/25/18 at 04:00 Aspirin (Aspirin) 81 mg DAILY PO Last administered on 07/26/18 08:33; Admin Dose 81 MG; Start 07/25/18 at 09:00 Acetaminophen (Tylenol Tab) 650 mg Q6H PRN PO .PAIN 1-3 OR TEMP; Start 07/25/18 at 04:00 Spironolactone (Aldactone) 200 mg DAILY PO Last administered on 07/26/18 08:33; Admin Dose 200 MG; Start 07/25/18 at 09:00 Ceftriaxone Sodium 50 ml @ 100 mls/hr DAILY IVPB Last administered on 07/26/18 08:32; Admin Dose 100 MLS/HR; Start 07/25/18 at 09:00 Estradiol (Estrace) 1 mg BID PO Last administered on 07/26/18 08:34; Admin Dose 1 MG; Start 07/25/18 at 21:00 Lorazepam (Ativan) 2 mg ONCE IV Last administered on 07/25/18 15:20; Admin Dose 2 MG; Start 07/25/18 at 14:00; Stop 07/26/18 at 23:00 Lamotrigine (Lamictal) 25 mg BID PO Last administered on 07/26/18 08:33; Admin Dose 25 MG; Start 07/25/18 at 14:00 Oxycodone HCl (Roxicodone) 15 mg Q4H PRN PO MODERATE PAIN LEVEL 4-6 Last administered on 07/26/18 15:28; Admin Dose 15 MG; Start 07/25/18 at 14:30 Oxycodone HCl (Oxycontin) 30 mg BID PO Last administered on 07/26/18 08:36; Admin Dose 30 MG; Start 07/25/18 at 14:30 Enoxaparin Sodium (Lovenox) 40 mg DAILY SC Last administered on 07/26/18at 15:54; Admin Dose 40 MG; Start 07/26/18 at 14:00 Past Medical History reviewed Home Meds Reported Medications Morphine Sulfate* (Oramorph SR*) 30 Mg Tablet.sa, 30 MG PO Q12, TAB.SA 07/24/18 Spironolactone* (Spironolactone*) 100 Mg Tablet, 200 MG PO DAILY, TAB 07/24/18 Estradiol* (Estrace*) 2 Mg Tab, 8 MG PO DAILY, TAB 07/24/18 Oxycodone Hcl* (IR) (Oxycodone Hcl*) 30 Mg Tablet, 30 MG PO TID PRN for PAIN, TAB 07/24/18 Discontinued Reported Medications Morphine Sulfate* (Ms Contin*) 15 Mg Tablet.sa, 15 MG PO Q12, TAB 07/24/18 Medications Current Medications IV Flush (NS 3 ml) 3 ml PER PROTOCOL IV ; Start 07/25/18 at 04:00 Ondansetron HCl (Zofran Inj) 4 mg Q6H PRN IV NAUSEA/VOMITING; Start 07/25/18 at 04:00 Aspirin (Aspirin) 81 mg DAILY PO Last administered on 07/26/18at 08:33; Admin Dose 81 MG; Start 07/25/18 at 09:00 Acetaminophen (Tylenol Tab) 650 mg Q6H PRN PO .PAIN 1-3 OR TEMP; Start 07/25/18 at 04:00 Spironolactone (Aldactone) 200 mg DAILY PO Last administered on 07/26/18at 08:33; Admin Dose 200 MG; Start 07/25/18 at 09:00 Ceftriaxone Sodium 50 ml @ 100 mls/hr DAILY IVPB Last administered on 07/26/18at 08:32; Admin Dose 100 MLS/HR; Start 07/25/18 at 09:00 Estradiol (Estrace) 1 mg BID PO Last administered on 07/26/18at 08:34; Admin Dose 1 MG; Start 07/25/18 at 21:00 Lorazepam (Ativan) 2 mg ONCE IV Last administered on 07/25/18at 15:20; Admin Dose 2 MG; Start 07/25/18 at 14:00; Stop 07/26/18 at 23:00 Lamotrigine (Lamictal) 25 mg BID PO Last administered on 07/26/18 08:33; Admin Dose 25 MG; Start 07/25/18 at 14:00 Oxycodone HCl (Roxicodone) 15 mg Q4H PRN PO MODERATE PAIN LEVEL 4-6 Last administered on 07/26/18at 15:28; Admin Dose 15 MG; Start 07/25/18 at 14:30 Oxycodone HCl (Oxycontin) 30 mg BID PO Last administered on 07/26/18at 08:36; Admin Dose 30 MG; Start 07/25/18 at 14:30 Enoxaparin Sodium (Lovenox) 40 mg DAILY SC Last administered on 07/26/18at 15:54; Admin Dose 40 MG; Start 07/26/18 at 14:00 Allergies: Coded Allergies: codeine (Unverified Allergy, Unknown, 07/25/18) Uncoded Allergies: ANTI NAUSEA MEDS (Allergy, Unknown, 07/24/18) PAIN MEDS (Allergy, Unknown, 07/24/18) codein (Allergy, Unknown, 07/24/18) Past Surgical History reviewed Social History reviewed Smoking Status: Current every day smoker HODA WORTHINGTON NP Jul 26, 2018 16:00 ALLISON DUMONT Jul 26, 2018 16:26
[2018-07-26] MEDS ORDERED: SOD CHLORIDE 0.9% 100 ML ONE (16:19)
[2018-07-26] MEDS ORDERED: IOHEXOL 100 ML ONE (16:19)
[2018-07-26] MEDS: LORAZEPAM 2 MG INJ IV PRN (16:41)
[2018-07-27] VITALS (9 sets, daily range): BP systolic 87–106; BP diastolic 53–68; PULSE 44–58; RESP 18–20
[2018-07-27] MEDS: oxyCODONE 15 MG TAB PO PRN ×4 (05:24→20:28)
[2018-07-27] MEDS: CEFTRIAXONE 1 GM/50 ML (PMX) 50 ML IVPB SCH (10:09)
[2018-07-27] MEDS: ASPIRIN 81 MG TAB PO SCH (10:10)
[2018-07-27] MEDS: ESTRADIOL 1 MG TAB PO SCH ×2 (10:10→20:27)
[2018-07-27] MEDS: SPIRONOLACTONE 50 MG TAB PO SCH (10:10)
[2018-07-27] MEDS: LAMOTRIGINE 25 MG TAB PO SCH ×2 (10:17→20:28)
[2018-07-27] MEDS: oxyCODONE (CR) 15 MG TAB [oxyCONTIN] PO SCH ×2 (10:18→21:00)
[2018-07-27] MEDS: ENOXAPARIN 40 MG/0.4 ML SYG SC SCH (10:43)
--- NOTE | 2018-07-27 14:26 | PN ---
Date/Time of Note Date/Time of Note DATE: 07/27/18 TIME: 14:21 Assessment/Plan VTE Prophylaxis Risk score (from Ns)>0 risk: 1 SCD applied (from Ns): Yes Pharmacological prophylaxis: LMWH Lines/Catheters IV Catheter Type (from Nrsg): Saline Lock Assessment/Plan Assessment/Plan 1. Right sided weakness, unremarkable CT and MRI brain, EEG ordered per neurology, follow up with neurology 2. Sinus bradycardia, TSH 3. UTI, treated with fosfomycin 4. H/o head trauma, status post left-sided craniotomy: No acute issue 5. Male to female transgender person, on estrogen and spironolactone 6. Chronic pain syndrome, Under the care of Dr. Christy Jamil as an outpatient 7. DVT prophylaxis: lovenox Result Diagram: 07/26/18 0539 07/26/1839 Subjective 24 Hr Interval Summary Free Text/Dictation right side weakness Exam/Review of Systems Exam Vitals Vital Signs Date Temp Pulse Resp B/P (MAP) Pulse Ox O2 O2 Flow FiO2 Time Delivery Rate 07/27/18 51 12:08 07/27/18 97.3 90/55 (67) 95 Room Air 11:42 07/27/18 20 04:00 Intake and Output 07/26/18 07/26/18 07/27/18 1515:00 23:00 07:00 IntakeIntake Total 1220 ml 800 ml BalanceBalance 1220 ml 800 ml Constitutional: alert, oriented, well developed Head: normocephalic, atraumatic Eyes: nl conjunctiva, EOMI, nl lids, PERRL ENMT: nl external ears & nose, nl lips & teeth, nl nasal mucosa & septum Neck: supple, non-tender Respiratory: clear to auscultation, normal air movement; No congested cough, No crackles/rales, No diminished breath sounds, No intercostal retraction, No labored breathing, No respirations, No tactile fremitus, No wheezing, No other Cardiovascular: regular rate and rhythm, nl pulses; No bruits, No diastolic murmur, No edema, No gallop, No irregular rhythm, No jugular venous distention (JVD), No murmurs/extra sounds, No rub, No systolic murmur, No S3, No S4, No other Gastrointestinal: soft, nl liver, spleen, non-tender Musculoskeletal: nl extremities to inspection Extremities: normal pulses; No calf tenderness, No cyanosis, No clubbing, No edema, No pitting pedal edema, No palpable cord, No tenderness, No other Neurological: [employer] II-XII intact, nl mental status, nl speech, other (RUE/RLE 3/5) Medications Medication Current Medications IV Flush (NS 3 ml) 3 ml PER PROTOCOL IV ; Start 07/25/18 at 04:00 Ondansetron HCl (Zofran Inj) 4 mg Q6H PRN IV NAUSEA/VOMITING; Start 07/25/18 at 04:00 Aspirin (Aspirin) 81 mg DAILY PO Last administered on 07/27/18 10:10; Admin Dose 81 MG; Start 07/25/18 at 09:00 Acetaminophen (Tylenol Tab) 650 mg Q6H PRN PO .PAIN 1-3 OR TEMP; Start 07/25/18 at 04:00 Spironolactone (Aldactone) 200 mg DAILY PO Last administered on 07/27/18 10:10; Admin Dose 200 MG; Start 07/25/18 at 09:00 Ceftriaxone Sodium 50 ml @ 100 mls/hr DAILY IVPB Last administered on 07/27/18 10:09; Admin Dose 100 MLS/HR; Start 07/25/18 at 09:00 Estradiol (Estrace) 1 mg BID PO Last administered on 07/27/18 10:10; Admin Dose 1 MG; Start 07/25/18 at 21:00 Lamotrigine (Lamictal) 25 mg BID PO Last administered on 07/27/18 10:17; Admin Dose 25 MG; Start 07/25/18 at 14:00 Oxycodone HCl (Roxicodone) 15 mg Q4H PRN PO MODERATE PAIN LEVEL 4-6 Last administered on 07/27/18 11:24; Admin Dose 15 MG; Start 07/25/18 at 14:30 Oxycodone HCl (Oxycontin) 30 mg BID PO Last administered on 07/27/18 10:18; Admin Dose 30 MG; Start 07/25/18 at 14:30 Enoxaparin Sodium (Lovenox) 40 mg DAILY SC Last administered on 07/27/18 10:43; Admin Dose 40 MG; Start 07/26/18 at 14:00 Lorazepam (Ativan) 2 mg Q6H PRN IV SEIZURES Last administered on 07/26/18at 16:41; Admin Dose 2 MG; Start 07/26/18 at 16:30 RM BUSTILLOS MD Jul 27, 2018 14:26
--- NOTE | 2018-07-27 15:52 | CONS ---
Assessment/Plan Assessment/Plan Hospital Course 53 yo transgender female w/ prior Hx of traumatic subdural, and other comorbidities, who presents for evaluation of right sided weakness.. The clinical picture raises concern for seizure w/ Lennox's paralysis.. MRI brain was reassuringly negative for acute intracranial pathology, though notable for remote post-op changes.. UTI+ UDS + benzos and opiates P: Await EEG to evaluate for epileptiform activity Ativan iv prn prolonged seizure or cluster PT/OT as necessary Continued medical management per primary Will follow Consultation Date/Type/Reason Admit Date/Time Jul 26, 2018 at 15:46 Type of Consult Neurology Reason for Consultation weakness Requesting Provider: RM BUSTILLOS MD Date/Time of Note DATE: 07/27/18 TIME: 15:51 24 HR Interval Summary Free Text/Dictation Continues acute care. Pt continues to endorse R sided weakness. Pt states that she takes versed 5mg QID for PTSD/muscle relaxant. Exam Vital Signs Vitals Vital Signs Date Temp Pulse Resp B/P (MAP) Pulse Ox O2 O2 Flow FiO2 Time Delivery Rate 07/27/18 97.1 46 87/55 (66) 95 Room Air 15:16 07/27/18 20 04:00 Intake and Output 07/26/18 07/26/18 07/27/18 1515:00 23:00 07:00 IntakeIntake Total 1220 ml 800 ml BalanceBalance 1220 ml 800 ml Exam PE: Gen Appearance: No Apparent Distress HEENT: Normocephalic Cardiovascular: Regular rate Lungs: Clear bilaterally Abdomen: Soft Extremities: Dry NE: The patient was alert and oriented. Language was normal. Fund of knowledge was normal. Pupils were equal and reactive to light. There was no afferent pupillary defect. Visual omck were normal. Funduscopic examination was limited. Extra-ocular movements were full. Ptosis was absent. There was no nystagmus. Facial sensation was normal. Face was symmetric with normal strength. Hearing was intact. Palate movements were normal. Neck strength was normal. There was normal tongue bulk and speed of movement. Tone was normal. Muscle bulk was normal. I did not see fasciculations. Arms and legs were severely weak on the R, stable from yesterday. Vibration sensation was normal. Temperature and pinprick sensation was normal. Rapid alternating movements were normal. There was no dysmetria. There was no intention tremor. Gait was deferred due to bedrest. Arm and leg reflexes were symmetric. Rosales's sign was absent. Plantar responses were flexor. HODA WORTHINGTON NP Jul 27, 2018 15:52 ALLISON DUMONT Jul 27, 2018 21:07
[2018-07-27] MEDS: LORAZEPAM 2 MG INJ IV PRN (20:44)
--- NOTE | 2018-07-27 21:19 | EEG ---
EEG NOTE Report Details DATE OF TEST: 07/27/18 HISTORY: The patient is a 53-year-old F who presents with weakness. This EEG is requested to evaluate for an epileptic disorder. SEDATION: None. CONDITIONS OF RECORDING: This EEG was recorded digitally on the [employer] machine, using the International 10-20 System of electrodes plus anterior temporals and [place]. STATES SAMPLED: Wakefulness and drowsiness. FINDINGS: The background is obscured by high frequency artifact throughout. No obvious focal abnormalities or epileptiform discharges were seen. IMPRESSION: Technically limited electroencephalogram due to high frequency artifact. ALLISON DUMONT Jul 27, 2018 21:19
--- NOTE | 2018-07-27 21:59 | RADRPT ---
Echocardiogram Report Patient Name: OZIEL GALVANPatient ID: [id number] : 1965 (53y 6m)Study Date: 07/26/2018 7:48:07 AM Gender: FAccession #: [id number] Tech: Romeo Berry SPENCER Location: [id number] Ref.Physician: JUVE PHAN Height(Cm): BSA: Weight(Kg): Quality: Technically Difficult StudyAccount #: Procedures: Echocardiographic Report: Transthoracic echocardiogram with complete 2D, M-Mode, and doppler examination. Indications: ams. Measurements: 2D/M Mode Doppler Measurement Value Normal Range Measurement Value Normal Range LVIDd 2D 4.2 [ 3.8 - 5.2 ] cm AV Peak Moreno 1.3 [ 100.0 - 170.0 ] cm/sec LVIDs 2D 2.7 [ 2.2 - 3.5 ] cm AV Peak PG 7.0 [ 2.0 - 9.0 ] mmHg LVPWd 2D 1.2 [ 0.6 - 0.9 ] cm LVOT Peak Moreno 1.3 [ 70.0 - 110.0 ] cm/sec IVSd 2D 1.2 [ 0.6 - 0.9 ] cm LVOT Peak PG 7.0 [ 2.0 - 6.0 ] mmHg AoR Diam 2D 3.7 [ 2.3 - 3.1 ] cm MV E Peak Moreno 0.7 [ 60.0 - 130.0 ] cm/sec EDV 2D 76.4 [ 46.0 - 106.0 ] ml MV A Peak Moreno 0.5 [ 100.0 - 120.0 ] cm/sec ESV 2D 26.0 [ 14.0 - 42.0 ] ml MV E/A 1.4 [ 0.8 - 1.5 ] ratio EF 2D 66.0 [ 54.0 - 74.0 ] percent MV Decel Time 137 [ 104 - 258 ] msec LA Dimen 2D 3.2 [ 2.7 - 3.8 ] cm Lat E` Moreno 0.2 [ 10.0 - 15.0 ] cm/sec Lateral E/E` 4.8 [ 1.0 - 2.0 ] ratio MV E/A 1.4 [ 0.8 - 1.5 ] ratio Findings: Left Ventricle: Overall, normal left ventricular systolic function. Not all segments visualized. Normal left ventricular cavity size. Mild concentric left ventricular hypertrophy. Ejection fraction is visually estimated at 65 %. Right Ventricle: Normal right ventricular size. Normal right ventricular systolic function. Left Atrium: The left atrium is normal in size. Right Atrium: The right atrium is normal in size. Mitral Valve: Normal appearance and function of the mitral valve with trace physiologic regurgitation. Aortic Valve: No significant aortic stenosis or insufficiency. Aortic valve not well visualized. Tricuspid Valve: Tricuspid valve not well visualized. There is trace tricuspid regurgitation. Pulmonic Valve: Pulmonic valve not well visualized. Pericardium: Normal pericardium with no significant pericardial effusion. Aorta: Normal aortic root. IVC: Normal size and normal respiratory collapse consistent with normal right atrial pressure. Conclusions: Overall, normal left ventricular systolic function. Not all segments visualized. Normal left ventricular cavity size. Mild concentric left ventricular hypertrophy. Ejection fraction is visually estimated at 65 %. Normal right ventricular size. Normal right ventricular systolic function. The left atrium is normal in size. The right atrium is normal in size. No significant valvular stenosis or regurgitation seen. Normal pericardium with no significant pericardial effusion. Electronically Signed By: [place] Little 2018-07-27 21:58:51 PDT
[2018-07-28] VITALS (12 sets, daily range): BP systolic 95–112; BP diastolic 52–63; PULSE 42–68; RESP 18
[2018-07-28] MEDS: oxyCODONE 15 MG TAB PO PRN ×4 (01:27→22:32)
[2018-07-28] MEDS ORDERED: DIAZEPAM 5 MG TAB PO ONE (01:30)
--- NOTE | 2018-07-28 07:16 | CONS ---
Assessment/Plan Assessment/Plan Hospital Course 53 yo transgender female w/ prior Hx of traumatic subdural, and other comorbidities, who presents for evaluation of right sided weakness.. The clinical picture raises concern for seizure w/ Lennox's paralysis..However, EEG was technically limited.. MRI brain was reassuringly negative for acute intracranial pathology, though notable for remote post-op changes.. UTI+ UDS + benzos and opiates P: Add MRI Spine for further characterization of right sided weakness. Repeat EEG to evaluate for epileptiform activity Ativan iv prn prolonged seizure or cluster PT/OT as necessary Continued medical management per primary Will follow Consultation Date/Type/Reason Admit Date/Time Jul 26, 2018 at 15:46 Type of Consult Neurology Reason for Consultation weakness Requesting Provider: RM BUSTILLOS MD Date/Time of Note DATE: 07/28/18 TIME: 07:16 24 HR Interval Summary Free Text/Dictation Continued to note right arm and leg weakness... States chronic neck and low back pain Exam Vital Signs Vitals Vital Signs Date Temp Pulse Resp B/P (MAP) Pulse Ox O2 O2 Flow FiO2 Time Delivery Rate 07/28/18 98.4 58 18 105/55 98 04:00 (72) 07/27/18 Room Air 15:16 Intake and Output 07/27/18 07/27/18 07/28/18 1515:00 23:00 07:00 IntakeIntake Total 50 ml 900 ml 1000 ml BalanceBalance 50 ml 900 ml 1000 ml Exam PE: Gen Appearance: No Apparent Distress HEENT: Normocephalic Cardiovascular: Regular rate Abdomen: Soft Extremities: Dry NE: The patient was alert and oriented. Language was normal. Fund of knowledge was normal. Pupils were equal and reactive to light. There was no afferent pupillary defect. Visual mock were normal. Funduscopic examination was limited. Extra-ocular movements were full. Ptosis was absent. There was no nystagmus. Facial sensation was normal. Face was symmetric with normal strength. Hearing was intact. Palate movements were normal. Neck strength was normal. There was normal tongue bulk and speed of movement. Tone was normal. Muscle bulk was normal. I did not see fasciculations. Arms and legs were weak on the right. Vibration sensation was normal. Temperature and pinprick sensation was normal. Rapid alternating movements were normal. There was no dysmetria. There was no intention tremor. Gait was deferred due to bedrest. Arm and leg reflexes were symmetric. Rosales's sign was absent. Plantar responses were flexor. ALLISON DUMONT Jul 28, 2018 07:16
[2018-07-28] MEDS: CEFTRIAXONE 1 GM/50 ML (PMX) 50 ML IVPB SCH (08:31)
[2018-07-28] MEDS: oxyCODONE (CR) 15 MG TAB [oxyCONTIN] PO SCH ×2 (08:33→20:50)
[2018-07-28] MEDS: SPIRONOLACTONE 50 MG TAB PO SCH (08:34)
[2018-07-28] MEDS: ASPIRIN 81 MG TAB PO SCH (08:34)
[2018-07-28] MEDS: LAMOTRIGINE 25 MG TAB PO SCH ×2 (08:34→20:50)
[2018-07-28] MEDS: ESTRADIOL 1 MG TAB PO SCH ×2 (08:34→20:50)
[2018-07-28] MEDS: ENOXAPARIN 40 MG/0.4 ML SYG SC SCH (08:44)
[2018-07-28] MEDS: LORAZEPAM 2 MG INJ IV PRN ×3 (10:14→22:32)
--- NOTE | 2018-07-28 14:18 | PN ---
Date/Time of Note Date/Time of Note DATE: 07/28/18 TIME: 14:10 Assessment/Plan VTE Prophylaxis Risk score (from Ns)>0 risk: 1 SCD applied (from Nsg): Yes Pharmacological prophylaxis: LMWH Lines/Catheters IV Catheter Type (from Nrsg): Saline Lock Assessment/Plan Assessment/Plan 1. Right sided weakness, unremarkable CT and MRI brain, unclear etiology, MRI of spine ordered today 2. Sinus bradycardia, asymptomatic 3. UTI, treated with fosfomycin 4. H/o head trauma, status post left-sided craniotomy: No acute issue 5. Male to female transgender person, on estrogen and spironolactone 6. Chronic pain syndrome, Under the care of Dr. Christy Jamil as an outpatient 7. DVT prophylaxis: lovenox Result Diagram: 07/28/18 1021 07/28/18 1021 Results 24hrs Laboratory Tests Test 07/28/18 10:21 White Blood Count 7.5 Red Blood Count 4.23 Hemoglobin 13.4 Hematocrit 41.1 Mean Corpuscular Volume 97.2 Mean Corpuscular Hemoglobin 31.7 Mean Corpuscular Hemoglobin Concent 32.6 Red Cell Distribution Width 13.7 Platelet Count 350 Mean Platelet Volume 9.5 Immature Granulocytes % 0.700 H Neutrophils % 64.9 Lymphocytes % 24.5 Monocytes % 6.7 Eosinophils % 2.7 Basophils % 0.5 Nucleated Red Blood Cells % 0.0 Immature Granulocytes # 0.050 H Neutrophils # 4.9 Lymphocytes # 1.8 Monocytes # 0.5 Eosinophils # 0.2 Basophils # 0.0 Nucleated Red Blood Cells # 0.0 Sodium Level 138 Potassium Level 4.4 Chloride Level 104 Carbon Dioxide Level 23 Anion Gap 11 Blood Urea Nitrogen 20 Creatinine 0.69 Est Glomerular Filtrat Rate mL/min > 60 Glucose Level 94 Calcium Level 9.6 Subjective 24 Hr Interval Summary Free Text/Dictation right side weakness Exam/Review of Systems Exam Vitals Vital Signs Date Temp Pulse Resp B/P (MAP) Pulse Ox O2 O2 Flow FiO2 Time Delivery Rate 07/28/18 57 12:00 07/28/18 97.1 108/57 96 11:59 (74) 07/28/18 Room Air 07:46 07/28/18 18 04:00 Intake and Output 07/27/18 07/27/18 07/28/18 1414:59 22:59 06:59 IntakeIntake Total 50 ml 900 ml 1000 ml BalanceBalance 50 ml 900 ml 1000 ml Constitutional: alert, oriented, well developed, obese Psych: no complaints, nl mood/affect Head: normocephalic, atraumatic Eyes: nl conjunctiva, EOMI, nl lids, nl sclera, PERRL ENMT: nl external ears & nose, nl lips & teeth, nl nasal mucosa & septum Neck: supple, non-tender Respiratory: clear to auscultation, normal air movement; No congested cough, No crackles/rales, No diminished breath sounds, No intercostal retraction, No labored breathing, No respirations, No tactile fremitus, No wheezing, No other Cardiovascular: regular rate and rhythm, nl pulses; No bruits, No diastolic murmur, No edema, No gallop, No irregular rhythm, No jugular venous distention (JVD), No murmurs/extra sounds, No rub, No systolic murmur, No S3, No S4, No other Gastrointestinal: soft, nl liver, spleen, non-tender Musculoskeletal: nl extremities to inspection Extremities: normal pulses; No calf tenderness, No cyanosis, No clubbing, No edema, No pitting pedal edema, No palpable cord, No tenderness, No other Neurological: TOOL TROUBLE SHOOTER II-XII intact, nl mental status, nl speech Results Results 24hrs Laboratory Tests Test 07/28/18 10:21 White Blood Count 7.5 Red Blood Count 4.23 Hemoglobin 13.4 Hematocrit 41.1 Mean Corpuscular Volume 97.2 Mean Corpuscular Hemoglobin 31.7 Mean Corpuscular Hemoglobin Concent 32.6 Red Cell Distribution Width 13.7 Platelet Count 350 Mean Platelet Volume 9.5 Immature Granulocytes % 0.700 H Neutrophils % 64.9 Lymphocytes % 24.5 Monocytes % 6.7 Eosinophils % 2.7 Basophils % 0.5 Nucleated Red Blood Cells % 0.0 Immature Granulocytes # 0.050 H Neutrophils # 4.9 Lymphocytes # 1.8 Monocytes # 0.5 Eosinophils # 0.2 Basophils # 0.0 Nucleated Red Blood Cells # 0.0 Sodium Level 138 Potassium Level 4.4 Chloride Level 104 Carbon Dioxide Level 23 Anion Gap 11 Blood Urea Nitrogen 20 Creatinine 0.69 Est Glomerular Filtrat Rate mL/min > 60 Glucose Level 94 Calcium Level 9.6 Medications Medication Current Medications IV Flush (NS 3 ml) 3 ml PER PROTOCOL IV ; Start 07/25/18 at 04:00 Ondansetron HCl (Zofran Inj) 4 mg Q6H PRN IV NAUSEA/VOMITING; Start 07/25/18 at 04:00 Aspirin (Aspirin) 81 mg DAILY PO Last administered on 07/28/18 08:34; Admin Dos e 81 MG; Start 07/25/18 at 09:00 Acetaminophen (Tylenol Tab) 650 mg Q6H PRN PO .PAIN 1-3 OR TEMP; Start 07/25/18 at 04:00 Spironolactone (Aldactone) 200 mg DAILY PO Last administered on 07/28/18 08:34; Admin Dose 200 MG; Start 07/25/18 at 09:00 Ceftriaxone Sodium 50 ml @ 100 mls/hr DAILY IVPB Last administered on 07/28/18 08:31; Admin Dose 100 MLS/HR; Start 07/25/18 at 09:00 Estradiol (Estrace) 1 mg BID PO Last administered on 07/28/18 08:34; Admin Dose 1 MG; Start 07/25/18 at 21:00 Lamotrigine (Lamictal) 25 mg BID PO Last administered on 07/28/18 08:34; Admin Dose 25 MG; Start 07/25/18 at 14:00 Oxycodone HCl (Roxicodone) 15 mg Q4H PRN PO MODERATE PAIN LEVEL 4-6 Last administered on 07/28/18 06:19; Admin Dose 15 MG; Start 07/25/18 at 14:30 Oxycodone HCl (Oxycontin) 30 mg BID PO Last administered on 07/28/18 08:33; Admin Dose 30 MG; Start 07/25/18 at 14:30 Enoxaparin Sodium (Lovenox) 40 mg DAILY SC Last administered on 07/28/18 08:44; Admin Dose 40 MG; Start 07/26/18 at 14:00 Lorazepam (Ativan) 2 mg Q6H PRN IV SEIZURES Last administered on 07/28/18 10:14; Admin Dose 2 MG; Start 07/26/18 at 16:30 RM BUSTILLOS MD Jul 28, 2018 14:18
[2018-07-28] MEDS: DIAZEPAM 2 MG TAB PO PRN (21:38)
[2018-07-29] VITALS (10 sets, daily range): BP systolic 92–111; BP diastolic 52–70; PULSE 53–93; RESP 18
[2018-07-29] MEDS: oxyCODONE 15 MG TAB PO PRN ×4 (04:48→22:53)
[2018-07-29] MEDS: LORAZEPAM 2 MG INJ IV PRN ×4 (04:48→22:53)
--- NOTE | 2018-07-29 07:02 | CONS ---
Assessment/Plan Assessment/Plan Hospital Course 53 yo transgender female w/ prior Hx of traumatic subdural, and other comorbidities, who presents for evaluation of right sided weakness.. The patient is not particularly straightforward about the chronicity of her Sx.. Multiple radiculopathy is considered.. An alternative consideration is seizure w/ Lennox's paralysis..However, EEG is without epileptiform activity. MRI brain was reassuringly negative for acute intracranial pathology, though notable for remote post-op changes.. MRI spine showed only mild to moderate degenerative changes UTI+ UDS + benzos and opiates P: Will defer AED Tx for now PT/OT as necessary Other medical management per primary Will follow clinically Consultation Date/Type/Reason Admit Date/Time Jul 26, 2018 at 15:46 Type of Consult Neurology Reason for Consultation weakness Requesting Provider: RM BUSTILLOS MD Date/Time of Note DATE: 07/29/18 TIME: 07:00 24 HR Interval Summary Free Text/Dictation Continues acute care Exam Vital Signs Vitals Vital Signs Date Temp Pulse Resp B/P (MAP) Pulse Ox O2 O2 Flow FiO2 Time Delivery Rate 07/29/18 62 04:00 07/28/18 98.6 18 112/63 98 19:30 (79) 07/28/18 Room Air 15:39 Intake and Output 07/28/18 07/28/18 07/29/18 1515:00 23:00 07:00 IntakeIntake Total 1300 ml 1200 ml BalanceBalance 1300 ml 1200 ml Exam PE: Gen Appearance: No Apparent Distress HEENT: Normocephalic Cardiovascular: Regular rate Abdomen: Soft Extremities: Dry NE: The patient was alert and oriented. Language was normal. Fund of knowledge was normal. Pupils were equal and reactive to light. There was no afferent pupillary defect. Visual mock were normal. Funduscopic examination was limited. Extra-ocular movements were full. Ptosis was absent. There was no nystagmus. Facial sensation was normal. Face was symmetric with normal strength. Hearing was intact. Palate movements were normal. Neck strength was normal. There was normal tongue bulk and speed of movement. Tone was normal. Muscle bulk was normal. I did not see fasciculations. Arms and legs were weak on the right. Vibration sensation was normal. Temperature and pinprick sensation was normal. Rapid alternating movements were normal. There was no dysmetria. There was no intention tremor. Gait was deferred due to bedrest. Arm and leg reflexes were symmetric. Rosales's sign was absent. Plantar responses were flexor. ALLISON DUMONT Jul 29, 2018 07:02 HODA WORTHINGTON NP Jul 29, 2018 14:59
[2018-07-29] MEDS: ASPIRIN 81 MG TAB PO SCH (08:36)
[2018-07-29] MEDS: ESTRADIOL 1 MG TAB PO SCH ×2 (08:36→21:17)
[2018-07-29] MEDS: LAMOTRIGINE 25 MG TAB PO SCH ×2 (08:36→21:17)
[2018-07-29] MEDS: oxyCODONE (CR) 15 MG TAB [oxyCONTIN] PO SCH ×2 (08:36→21:49)
[2018-07-29] MEDS: SPIRONOLACTONE 50 MG TAB PO SCH (08:37)
[2018-07-29] MEDS: ENOXAPARIN 40 MG/0.4 ML SYG SC SCH (08:41)
[2018-07-29] MEDS: DIAZEPAM 2 MG TAB PO PRN ×3 (08:46→21:17)
[2018-07-29] MEDS: CEFTRIAXONE 1 GM/50 ML (PMX) 50 ML IVPB SCH (08:47)
--- NOTE | 2018-07-29 12:52 | PN ---
Date/Time of Note Date/Time of Note DATE: 07/29/18 TIME: 12:50 Assessment/Plan VTE Prophylaxis Risk score (from Nsg)>0 risk: 1 SCD applied (from Nsg): Yes Pharmacological prophylaxis: LMWH Lines/Catheters IV Catheter Type (from Nrsg): Saline Lock Assessment/Plan Assessment/Plan 1. Right sided weakness, unremarkable CT and MRI brain, unclear etiology, MRI of spine reviewed, neurosurgical consult 2. Sinus bradycardia, asymptomatic 3. UTI, treated with fosfomycin 4. H/o head trauma, status post left-sided craniotomy: No acute issue 5. Male to female transgender person, on estrogen and spironolactone 6. Chronic pain syndrome, Under the care of Dr. Christy Jamil as an outpatient 7. DVT prophylaxis: lovenox Result Diagram: 07/28/18 1021 07/28/18 1021 Subjective 24 Hr Interval Summary Free Text/Dictation still with weakness on right side, more on right lower extremity, no pain Exam/Review of Systems Exam Vitals Vital Signs Date Temp Pulse Resp B/P (MAP) Pulse Ox O2 O2 Flow FiO2 Time Delivery Rate 07/29/18 58 12:31 07/29/18 98.3 18 92/54 (67) 98 11:06 07/28/18 Room Air 15:39 Intake and Output 07/28/18 07/28/18 07/29/18 1515:00 23:00 07:00 IntakeIntake Total 1300 ml 1200 ml BalanceBalance 1300 ml 1200 ml Constitutional: alert, oriented, well developed Psych: no complaints, nl mood/affect Head: normocephalic, atraumatic Eyes: nl conjunctiva, EOMI, nl lids ENMT: nl external ears & nose, nl lips & teeth, nl nasal mucosa & septum Neck: supple, non-tender Respiratory: clear to auscultation, normal air movement; No congested cough, No crackles/rales, No diminished breath sounds, No intercostal retraction, No labored breathing, No respirations, No tactile fremitus, No wheezing, No other Cardiovascular: regular rate and rhythm, nl pulses; No bruits, No diastolic murmur, No edema, No gallop, No irregular rhythm, No jugular venous distention (JVD), No murmurs/extra sounds, No rub, No systolic murmur, No S3, No S4, No other Gastrointestinal: soft, nl liver, spleen, non-tender Musculoskeletal: nl extremities to inspection Extremities: normal pulses; No calf tenderness, No cyanosis, No clubbing, No edema, No pitting pedal edema, No palpable cord, No tenderness, No other Neurological: KAIAWHINA II-XII intact, nl mental status, nl speech, other (3/5 on RUE/RLE) Medications Medication Current Medications IV Flush (NS 3 ml) 3 ml PER PROTOCOL IV ; Start 07/25/18 at 04:00 Ondansetron HCl (Zofran Inj) 4 mg Q6H PRN IV NAUSEA/VOMITING; Start 07/25/18 at 04:00 Aspirin (Aspirin) 81 mg DAILY PO Last administered on 07/29/18 08:36; Admin Dose 81 MG; Start 07/25/18 at 09:00 Acetaminophen (Tylenol Tab) 650 mg Q6H PRN PO .PAIN 1-3 OR TEMP; Start 07/25/18 at 04:00 Spironolactone (Aldactone) 200 mg DAILY PO Last administered on 07/29/18 08:37; Admin Dose 200 MG; Start 07/25/18 at 09:00 Ceftriaxone Sodium 50 ml @ 100 mls/hr DAILY IVPB Last administered on 07/29/18 08:47; Admin Dose 100 MLS/HR; Start 07/25/18 at 09:00 Estradiol (Estrace) 1 mg BID PO Last administered on 07/29/18 08:36; Admin Dose 1 MG; Start 07/25/18 at 21:00 Lamotrigine (Lamictal) 25 mg BID PO Last administered on 07/29/18 08:36; Admin Dose 25 MG; Start 07/25/18 at 14:00 Oxycodone HCl (Oxycontin) 30 mg BID PO Last administered on 07/29/18 08:36; Admin Dose 30 MG; Start 07/25/18 at 14:30 Enoxaparin Sodium (Lovenox) 40 mg DAILY SC Last administered on 07/29/18 08:41; Admin Dose 40 MG; Start 07/26/18 at 14:00 Lorazepam (Ativan) 2 mg Q6H PRN IV SEIZURES Last administered on 07/29/18 11:15; Admin Dose 2 MG; Start 07/26/18 at 16:30 Oxycodone HCl (Roxicodone) 30 mg Q6H PRN PO MODERATE PAIN LEVEL 4-6 Last administered on 07/29/18at 11:15; Admin Dose 30 MG; Start 07/28/18 at 14:30 Diazepam (Valium) 2 mg Q6H PRN PO ANXIETY Last administered on 07/29/18at 08:46; Admin Dose 2 MG; Start 07/28/18 at 14:30 RM BUSTILLOS MD Jul 29, 2018 12:52
[2018-07-30] VITALS (13 sets, daily range): BP systolic 97–114; BP diastolic 64–73; PULSE 59–85; RESP 17–18
[2018-07-30] MEDS: DIAZEPAM 2 MG TAB PO PRN ×4 (03:22→23:45)
[2018-07-30] MEDS: oxyCODONE 15 MG TAB PO PRN ×4 (04:49→22:36)
[2018-07-30] MEDS: LORAZEPAM 2 MG INJ IV PRN ×5 (04:49→22:57)
--- NOTE | 2018-07-30 07:52 | CONS ---
Assessment/Plan Assessment/Plan Hospital Course 53 yo transgender female w/ prior Hx of traumatic subdural, and other comorbidities, who presents for evaluation of right sided weakness.. The patient is not particularly straightforward about the chronicity of her Sx.. Multiple radiculopathy is considered.. An alternative consideration is seizure w/ Lennox's paralysis..However, EEG is without epileptiform activity. MRI brain was reassuringly negative for acute intracranial pathology, though notable for remote post-op changes.. MRI spine showed only mild to moderate degenerative changes UTI+ UDS + benzos and opiates P: Will defer AED Tx for now PT/OT as necessary Other medical management per primary Neurologically cleared for d/c when medically able Consultation Date/Type/Reason Admit Date/Time Jul 26, 2018 at 15:46 Type of Consult Neurology Reason for Consultation weakness Requesting Provider: RM BUSTILLOS MD Date/Time of Note DATE: 07/30/18 TIME: 07:51 24 HR Interval Summary Free Text/Dictation Continues acute care. Pt continues to endorse R sided weakness. Exam Vital Signs Vitals Vital Signs Date Temp Pulse Resp B/P (MAP) Pulse Ox O2 O2 Flow FiO2 Time Delivery Rate 07/30/18 97.7 67 18 103/67 96 07:46 (79) 07/28/18 Room Air 15:39 Intake and Output 07/29/18 07/29/18 07/30/18 1515:00 23:00 07:00 IntakeIntake Total 1200 ml 1000 ml BalanceBalance 1200 ml 1000 ml Exam PE: Gen Appearance: No Apparent Distress HEENT: Normocephalic Cardiovascular: Regular rate Abdomen: Soft Extremities: Dry NE: The patient was alert and oriented. Language was normal. Fund of knowledge was normal. Pupils were equal and reactive to light. There was no afferent pupillary defect. Visual mock were normal. Funduscopic examination was limited. Extra-ocular movements were full. Ptosis was absent. There was no nystagmus. Facial sensation was normal. Face was symmetric with normal strength. Hearing was intact. Palate movements were normal. Neck strength was normal. There was normal tongue bulk and speed of movement. Tone was normal. Muscle bulk was normal. I did not see fasciculations. Arms and legs were weak on the right. Vibration sensation was normal. Temperature and pinprick sensation was normal. Rapid alternating movements were normal. There was no dysmetria. There was no intention tremor. Gait was deferred due to bedrest. Arm and leg reflexes were symmetric. Rosales's sign was absent. Plantar responses were flexor. ALLISON DUMONT Jul 30, 2018 07:52 HODA WORTHINGTON NP Jul 30, 2018 13:13
[2018-07-30] MEDS: ESTRADIOL 1 MG TAB PO SCH ×2 (08:27→22:14)
[2018-07-30] MEDS: LAMOTRIGINE 25 MG TAB PO SCH ×2 (08:27→22:14)
[2018-07-30] MEDS: ASPIRIN 81 MG TAB PO SCH (08:27)
[2018-07-30] MEDS: CEFTRIAXONE 1 GM/50 ML (PMX) 50 ML IVPB SCH (08:29)
[2018-07-30] MEDS: oxyCODONE (CR) 15 MG TAB [oxyCONTIN] PO SCH ×2 (08:29→22:15)
[2018-07-30] MEDS: ENOXAPARIN 40 MG/0.4 ML SYG SC SCH (08:40)
--- NOTE | 2018-07-30 14:54 | DS ---
Date/Time of Note Date/Time of Note DATE: 07/30/18 TIME: 14:47 Discharge Summary Admission/Discharge Info Admit Date/Time Jul 26, 2018 at 15:46 Discharge Date/Time Discharge Diagnosis 1. Right sided weakness, unremarkable CT and MRI brain/spine, continue PT/OT 2. Sinus bradycardia, asymptomatic 3. UTI, treated with fosfomycin 4. H/o head trauma, status post left-sided craniotomy: No acute issue 5. Male to female transgender person, on estrogen and spironolactone 6. Chronic pain syndrome, Under the care of Dr. Christy Jamil as an outpatient Patient Condition: Stable Procedures PROCEDURE: MR Brain without contrast. CLINICAL INDICATION: Altered mental status, right-sided weakness. TECHNIQUE: An MRI of the brain was performed on a Signa 3T scanner utilizing the following sequences: Sagittal and axial T1 weighted, axial T2 weighted, coronal GRE, axial diffusion weighted with ADC mapping, and axial FLAIR. COMPARISON: CT BRAIN 07/24/2018 FINDINGS: There is evidence of prior left parietal craniotomy. No diffusion weighted abnormalities are seen to suggest the presence of acute ischemia or recent infarct. No hypointense signal abnormalities are seen on the GRE images to suggest the presence of blood degradation products. There is no evidence of intracranial hemorrhage, mass effect, or midline shift. Mild increased CSF space is noted over the left cerebral convexity, posterior fossa and cavernous sinus. The ventricles and sulci are normal in size and configuration. The signal intensity is normal throughout the cerebrum, brainstem, and cerebellum. Normal flow voids are visible in the proximal intracranial arteries and dural sinuses, indicating patency. The craniocervical junction is normal. The orbits are grossly normal. There is left sphenoid and right maxillary sinus mucosal thickening. IMPRESSION: No evidence of acute ischemia. Prior left parietal craniotomy with mild increase CSF space over the left cerebral convexity and cerebellum. Left sphenoid and right maxillary sinusitis. [facility] Physician Lily Date Time Electronically viewed and signed by Physician Lily on 07/26/2018 06:49 CS/ CC: JUVE PHAN MD PROCEDURE: MRI cervical spine without contrast CLINICAL INDICATION: Right-sided weakness TECHNIQUE: Multiplanar MRI of the cervical spine without contrast was performed on a 3.0 T scanner including the following sequences: T1-weighted, T2-weighted, GRE. COMPARISON: None available. FINDINGS: There are patient motion related artifacts somewhat limiting evaluation. There is gross preservation of the cervical lordosis without spondylolisthesis seen. The vertebral bodies are maintained in height. No fracture or suspicious osseous lesion is seen. Anterior osteophytes are seen at the C5-6 and C6-7 levels with mild disc space narrowing at C6-7. The visualized cervical cord is within normal limits for signal intensity and caliber. The craniocervical junction is grossly intact . Additional findings by levels: C2-3: No disc bulge/herniation, central canal stenosis is identified. There is facet arthropathy . Significant foraminal narrowing seen. C3-4: There is a mild posterior disc osteophyte without central canal stenosis identified. There are uncovertebral osteophytes and facet arthropathy with mild bilateral foraminal narrowing seen. C4-5: There is a mild posterior disc osteophyte without significant central canal stenosis identified. There are uncovertebral osteophytes and facet arthropathy with mild to moderate left foraminal narrowing is seen. C5-6: There is a mild posterior disc osteophyte without significant central canal stenosis identified. There are uncovertebral osteophytes and facet arthropathy with mild right, severe left foraminal narrowing seen. C6-7: There is a mild posterior disc osteophyte without significant central canal stenosis identified. Noted is a small perineural cyst extending towards t he right foramen.. There are uncovertebral osteophytes and facet arthropathy with severe left foraminal narrowing seen. C7-T1: No disc bulge/herniation, central canal stenosis or foraminal narrowing is identified. IMPRESSION: 1. Somewhat limited evaluation due to motion. 2. Cervical spondylosis/degenerative enthesopathy described above. 3. No significant central canal stenosis identified. 4. Multilevel foraminal narrowing outlined in detail above. 5. Visualized cervical cord within normal limits. RPTAT: VV PROCEDURE: MRI lumbar spine without contrast. CLINICAL INDICATION: Right-sided weakness TECHNIQUE: Multiplanar MRI of the lumbar spine without contrast was performed on a 3.0 T scanner including the following sequences: T1-weighted, T2-weighted, proton density. COMPARISON: None. FINDINGS: There are patient motion related artifacts somewhat limiting evaluation. There is preservation of the lumbar lordosis. No spondylolisthesis is seen. The vertebral bodies are maintained in height. No fracture or suspicious osseous lesion is seen. Anterior osteophytes are seen at the upper lumbar region. Mild to moderate disc space narrowing is seen posteriorly at L5-S1 with decreased intranuclear T2-weighted signal intensity at this level. The visualized distal cord is within normal limits for signal intensity and caliber and the conus medullaris terminates at the L1 level. Bilateral renal cysts are seen. Additional findings by levels: T12-L1: No significant disc bulge/herniation, central canal stenosis or foraminal narrowing is identified. L1-L2: No significant disc bulge/herniation, central canal stenosis or foraminal narrowing is identified. L2-L3: No significant disc bulge/herniation, central canal stenosis or foraminal narrowing is identified. L3-L4: There is minimal to mild posterior disc bulging and mild facet arthropathy. No significant central canal stenosis or foraminal narrowing is identified. L4-L5: There is minimal to mild posterior disc bulging and mild moderate facet arthropathy. No significant central canal stenosis or foraminal narrowing is identified. L5-S1: There is posterior disc bulging and mild moderate facet arthropathy. No significant central canal stenosis is identified. Mild to moderate bilateral foraminal narrowing is seen. IMPRESSION: 1. Somewhat limited evaluation due to motion. 2. Lumbar spondylosis/degenerative enthesopathy as described above. 3. No significant central canal stenosis. 4. Mild to moderate bilateral foraminal narrowing at L5-S1. RPTAT: VV .Tobi Fabian MD, MD Date Time Electronically viewed and signed by .Tobi Fabian MD, MD on 07/29/2018 09:28 .O/ CC: ALLISON DUMONT [id number] PROCEDURE: MRI thoracic spine without contrast CLINICAL INDICATION: Right-sided weakness TECHNIQUE: Multiplanar MRI of the thoracic spine was performed on a 3.0 T scanner utilizing the following sequences: T1-weighted, T2-weighted, GRE. COMPARISON: None available. FINDINGS: There are patient motion related artifacts somewhat limiting evaluation. There is preservation of the thoracic kyphosis. No spondylolisthesis is seen. There is a mild chronic T9 compression deformity. No suspicious osseous lesion is seen. Small hemangiomas are seen at the T5 and T9 vertebral bodies. The visualized thoracic cord is within normal limits for signal intensity and carol jessica. Mild anterior osteophytes are seen at several levels in the upper through lower thoracic spine and mild to moderate disc space narrowing is seen at multiple levels in the upper through lower thoracic spine. No significant disc bulge/herniation, central canal stenosis or foraminal narrowing is identified. A left renal cyst is seen. IMPRESSION: 1. Somewhat limited evaluation due to motion. 2. Thoracic spondylosis/degenerative enthesopathy as described above. 3. Mild chronic T9 compression deformity. 4. No significant central canal stenosis or foraminal narrowing identified. 5. Visualized thoracic cord within normal limits. RPTAT: VV .Tobi Fabian MD, MD Date Time Electronically viewed and signed by .Tobi Fabian MD, MD on 07/29/2018 09:17 Hospital Course This is a 53-year-old male to female transgender with a history of subdural hematoma status post left craniotomy, sciatica, chronic pain, chronic hypotension. Patient presents the ER complaining of right-sided weakness. She said that she dropped of friend and wanted to take a nap because she was very tired. She woke up in her car 24 hours later. Denied slurred speech, facial droop, seizure-like activity. She does however complain of generalized body ache and was asking to take home narcotics. For right sided weakness, CT and MRI of brain unremarkable except old left parietal craniotomy changes. MRI of spine is unremarkable except some degenerative changes, no significant disc disease. Patient will be transferred to SNF for physical theraepy and occupational therapy. When she initially presented to ER, blood pressure was 131/80, however SBP has since for the most part been in the 80s. She said her systolic blood pressure usually runs in the 80s. Patient is asymptomatic, no treatment needed. Patient has UTI that she was treated with single dose fosfomycin. Home Meds Reported Medications Morphine Sulfate* (Oramorph SR*) 30 Mg Tablet.sa, 30 MG PO Q12, TAB.SA 07/24/18 Spironolactone* (Spironolactone*) 100 Mg Tablet, 200 MG PO DAILY, TAB 07/24/18 Estradiol* (Estrace*) 2 Mg Tab, 8 MG PO DAILY, TAB 07/24/18 Oxycodone Hcl* (IR) (Oxycodone Hcl*) 30 Mg Tablet, 30 MG PO TID PRN for PAIN, TAB 07/24/18 Hydromorphone Hcl (Dilaudid) 8 Mg Tablet, 8 MG PO 08/21/12 Discontinued Reported Medications Morphine Sulfate* (Ms Contin*) 15 Mg Tablet.sa, 15 MG PO Q12, TAB 07/24/18 Follow-up Plan PCP and neurology in one week Primary Care Provider RM BUSTILLOS MD Jul 30, 2018 14:54
--- NOTE | 2018-07-30 17:17 | CONS ---
Assessment/Plan Assessment/Plan Assessment/Plan (Daily) Diagnosis 1) Weakness - NOS A/P - 53 year old with weakness. No neurosurgical etiology can be determined. Please continue workup with neurology (MS, transverse myelitis etc). Consultation Date/Type/Reason Admit Date/Time Jul 26, 2018 at 15:46 Date of Consultation: Jul 30, 2018 Type of Consult Neurosurgery Reason for Consultation Right leg weakness Date/Time of Note DATE: 07/30/18 TIME: 17:12 Hx of Present Illness 53 year old woman with prior history of L SDH, who has had 1 week of sudden RLE weakness. No prior history of such events. No trauma. Past Medical History Home Meds Reported Medications Morphine Sulfate* (Oramorph SR*) 30 Mg Tablet.sa, 30 MG PO Q12, TAB.SA 07/24/18 Spironolactone* (Spironolactone*) 100 Mg Tablet, 200 MG PO DAILY, TAB 07/24/18 Estradiol* (Estrace*) 2 Mg Tab, 8 MG PO DAILY, TAB 07/24/18 Oxycodone Hcl* (IR) (Oxycodone Hcl*) 30 Mg Tablet, 30 MG PO TID PRN for PAIN, TAB 07/24/18 Hydromorphone Hcl (Dilaudid) 8 Mg Tablet, 8 MG PO 08/21/12 Discontinued Reported Medications Morphine Sulfate* (Ms Contin*) 15 Mg Tablet.sa, 15 MG PO Q12, TAB 07/24/18 Medications Current Medications IV Flush (NS 3 ml) 3 ml PER PROTOCOL IV ; Start 07/25/18 at 04:00 Ondansetron HCl (Zofran Inj) 4 mg Q6H PRN IV NAUSEA/VOMITING; Start 07/25/18 at 04:00 Aspirin (Aspirin) 81 mg DAILY PO Last administered on 07/30/18at 08:27; Admin Dose 81 MG; Start 07/25/18 at 09:00 Acetaminophen (Tylenol Tab) 650 mg Q6H PRN PO .PAIN 1-3 OR TEMP; Start 07/25/18 at 04:00 Spironolactone (Aldactone) 200 mg DAILY PO Last administered on 07/29/18at 08:37; Admin Dose 200 MG; Start 07/25/18 at 09:00; Status Hold Estradiol (Estrace) 1 mg BID PO Last administered on 07/30/18 08:27; Admin Dose 1 MG; Start 07/25/18 at 21:00 Lamotrigine (Lamictal) 25 mg BID PO Last administered on 07/30/18 08:27; Admin Dose 25 MG; Start 07/25/18 at 14:00 Oxycodone HCl (Oxycontin) 30 mg BID PO Last administered on 07/30/18 08:29; Admin Dose 30 MG; Start 07/25/18 at 14:30 Enoxaparin Sodium (Lovenox) 40 mg DAILY SC Last administered on 07/30/18 08:40; Admin Dose 40 MG; Start 07/26/18 at 14:00 Lorazepam (Ativan) 2 mg Q6H PRN IV SEIZURES Last administered on 07/30/18 10:46; Admin Dose 2 MG; Start 07/26/18 at 16:30 Oxycodone HCl (Roxicodone) 30 mg Q6H PRN PO MODERATE PAIN LEVEL 4-6 Last administered on 07/30/18 10:46; Admin Dose 30 MG; Start 07/28/18 at 14:30 Diazepam (Valium) 2 mg Q6H PRN PO ANXIETY Last administered on 07/30/18 16:10; Admin Dose 2 MG; Start 07/28/18 at 14:30 Allergies: Coded Allergies: ondansetron HCl (Verified Allergy, Mild, RASH, 08/21/12) codeine (Unverified Allergy, Unknown, 07/27/18) Uncoded Allergies: ANTI NAUSEA MEDS (Allergy, Unknown, 07/27/18) PAIN MEDS (Allergy, Unknown, 07/27/18) codein (Allergy, Unknown, 07/27/18) Social History Smoking Status: Current every day smoker Exam/Review of Systems Exam Vitals Vital Signs Date Temp Pulse Resp B/P (MAP) Pulse Ox O2 O2 Flow FiO2 Time Delivery Rate 07/30/18 97.4 73 18 105/64 96 15:19 (78) 07/28/18 Room Air 15:39 Intake and Output 07/29/18 07/29/18 07/30/18 1515:00 23:00 07:00 IntakeIntake Total 1200 ml 1000 ml BalanceBalance 1200 ml 1000 ml Exam Alert and oriented 1/5 RLE, otherwise full strength Results Result Diagram: 07/28/18 1021 07/28/18 1021 Imaging Imaging MRI brain, C/T/L spine negative for any clear pathology Evidence of prior L craniotomy Medications Medication Current Medications IV Flush (NS 3 ml) 3 ml PER PROTOCOL IV ; Start 07/25/18 at 04:00 Ondansetron HCl (Zofran Inj) 4 mg Q6H PRN IV NAUSEA/VOMITING; Start 07/25/18 at 04:00 Aspirin (Aspirin) 81 mg DAILY PO Last administered on 07/30/18 08:27; Admin Dose 81 MG; Start 07/25/18 at 09:00 Acetaminophen (Tylenol Tab) 650 mg Q6H PRN PO .PAIN 1-3 OR TEMP; Start 07/25/18 at 04:00 Spironolactone (Aldactone) 200 mg DAILY PO Last administered on 07/29/18 08:37; Admin Dose 200 MG; Start 07/25/18 at 09:00; Status Hold Estradiol (Estrace) 1 mg BID PO Last administered on 07/30/18 08:27; Admin Dose 1 MG; Start 07/25/18 at 21:00 Lamotrigine (Lamictal) 25 mg BID PO Last administered on 07/30/18 08:27; Admin Dose 25 MG; Start 07/25/18 at 14:00 Oxycodone HCl (Oxycontin) 30 mg BID PO Last administered on 07/30/18 08:29; Admin Dose 30 MG; Start 07/25/18 at 14:30 Enoxaparin Sodium (Lovenox) 40 mg DAILY SC Last administered on 07/30/18 08:40; Admin Dose 40 MG; Start 07/26/18 at 14:00 Lorazepam (Ativan) 2 mg Q6H PRN IV SEIZURES Last administered on 07/30/18 10:46; Admin Dose 2 MG; Start 07/26/18 at 16:30 Oxycodone HCl (Roxicodone) 30 mg Q6H PRN PO MODERATE PAIN LEVEL 4-6 Last administered on 07/30/18 10:46; Admin Dose 30 MG; Start 07/28/18 at 14:30 Diazepam (Valium) 2 mg Q6H PRN PO ANXIETY Last administered on 07/30/18 16:10; Admin Dose 2 MG; Start 07/28/18 at 14:30 DAVION STEPHENSON MD Jul 30, 2018 17:17
[2018-07-31] VITALS: BP 108/66; PULSE 69; RESP 18
[2018-07-31 01:59] VITALS: BP 105/62; PULSE 64; RESP 17
[2018-07-31] MEDS: LORAZEPAM 2 MG INJ IV PRN ×4 (02:47→22:52)
[2018-07-31] MEDS: oxyCODONE 15 MG TAB PO PRN ×3 (06:13→22:07)
[2018-07-31] MEDS: DIAZEPAM 2 MG TAB PO PRN ×2 (07:54→19:27)
[2018-07-31 08:00] VITALS: BP 103/59; PULSE 58; RESP 12
--- NOTE | 2018-07-31 09:33 | PN ---
Date/Time of Note Date/Time of Note DATE: 07/31/18 TIME: 09:29 Assessment/Plan VTE Prophylaxis Risk score (from Ns)>0 risk: 2 SCD applied (from Ns): No SCD contraindicated: patient refusal Pharmacological prophylaxis: heparin Lines/Catheters IV Catheter Type (from Nrsg): Saline Lock Assessment/Plan Problems: (1) Right sided weakness Status: Acute Comment: Workup has been largely unrevealing. I do not believe this is consistent with multiple sclerosis. I suspect that with this is is what had previously been referred to is a Thursday night palsy from her having having slept in one position in the car for prolonged period of time. This will resolve very slowly and the patient will need to go to an extended care facility for rehabilitation. (2) Chronic pain syndrome Status: Chronic Comment: As per the patient's pain management physician Dr. Jamil (3) Osteoarthritis of knees, bilateral Status: Chronic Comment: As per the patient's pain management physician. Qualifiers: Osteoarthritis type: primary (4) Chronic neck pain Status: Chronic Comment: As per patient's pain management physician (5) Reflex sympathetic dystrophy of left upper extremity Status: Chronic Comment: This is stable the patient is tolerating the lamotrigine. Please note she describes having had failures of gabapentin and topiramate. I would go ahead and push up on the lamotrigine this can be followed up by the patient's pain management physician (6) Chronic low back pain with sciatica Status: Chronic Comment: As above Qualifiers: Back pain laterality: bilateral Sciatica laterality: bilateral sciatica (7) Gender identity disorder in adult Status: Chronic Comment: Review of the laboratory testing demonstrates that this patient has no source of manufacturing of high volume testosterone. As such the spironolactone is not indicated. In addition of the dosing of estrogen was not needed to be th is high. Medications have been adjusted this is been discussed with the patient and she is in agreement (8) UTI (urinary tract infection) Status: Acute Comment: Resolved Qualifiers: Urinary tract infection type: acute cystitis Hematuria presence: without hematuria (9) [id number] transgender person Status: Chronic Comment: As above Result Diagram: 07/28/18 1021 07/28/18 1021 Subjective 24 Hr Interval Summary Free Text/Dictation Patient reports she is frustrated about not having a clear answer why she has the weakness. Constitutional: no complaints Respiratory: no complaints Cardiovascular: no complaints Gastrointestinal: no complaints Genitourinary: no complaints Exam/Review of Systems Exam Vitals Vital Signs Date Temp Pulse Resp B/P (MAP) Pulse Ox O2 O2 Flow FiO2 Time Delivery Rate 07/31/18 98.0 58 12 103/59 94 Room Air 08:00 (74) Intake and Output 07/30/18 07/30/18 07/31/18 1515:00 23:00 07:00 IntakeIntake Total 240 ml 1800 ml BalanceBalance 240 ml 1800 ml Constitutional: alert, oriented Respiratory: clear to auscultation, normal air movement Cardiovascular: regular rate and rhythm, nl pulses Gastrointestinal: soft, nl liver, spleen, non-tender Medications Medication Current Medications IV Flush (NS 3 ml) 3 ml PER PROTOCOL IV ; Start 07/25/18 at 04:00 Ondansetron HCl (Zofran Inj) 4 mg Q6H PRN IV NAUSEA/VOMITING; Start 07/25/18 at 04:00 Aspirin (Aspirin) 81 mg DAILY PO Last administered on 07/30/18 08:27; Admin Dose 81 MG; Start 07/25/18 at 09:00 Acetaminophen (Tylenol Tab) 650 mg Q6H PRN PO .PAIN 1-3 OR TEMP; Start 07/25/18 at 04:00 Estradiol (Estrace) 1 mg BID PO Last administered on 07/30/18 22:14; Admin Dose 1 MG; Start 07/25/18 at 21:00 Lamotrigine (Lamictal) 25 mg BID PO Last administered on 07/30/18 22:14; Admin Dose 25 MG; Start 07/25/18 at 14:00 Oxycodone HCl (Oxycontin) 30 mg BID PO Last administered on 07/30/18 22:15; Admin Dose 30 MG; Start 07/25/18 at 14:30 Enoxaparin Sodium (Lovenox) 40 mg DAILY SC Last administered on 07/30/18 08:40; Admin Dose 40 MG; Start 07/26/18 at 14:00 Lorazepam (Ativan) 2 mg Q6H PRN IV SEIZURES Last administered on 07/30/18 17:18; Admin Dose 2 MG; Start 07/26/18 at 16:30 Oxycodone HCl (Roxicodone) 30 mg Q6H PRN PO MODERATE PAIN LEVEL 4-6 Last administered on 07/31/18 06:13; Admin Dose 30 MG; Start 07/28/18 at 14:30 Diazepam (Valium) 2 mg Q6H PRN PO ANXIETY Last administered on 07/31/18 07:54; Admin Dose 2 MG; Start 07/28/18 at 14:30 Lorazepam (Ativan) 1 mg Q4H PRN IV ANXIETY Last administered on 07/31/18 06:48; Admin Dose 1 MG; Start 07/30/18 at 22:30 SHAHAB VARGAS MD Jul 31, 2018 09:33
[2018-07-31] MEDS: ESTRADIOL 1 MG TAB PO SCH ×2 (09:49→22:06)
[2018-07-31] MEDS: oxyCODONE (CR) 15 MG TAB [oxyCONTIN] PO SCH ×3 (09:50→22:52)
[2018-07-31] MEDS: LAMOTRIGINE 25 MG TAB PO SCH ×2 (09:50→22:07)
[2018-07-31] MEDS: ENOXAPARIN 40 MG/0.4 ML SYG SC SCH (09:53)
[2018-07-31] MEDS: ASPIRIN 81 MG TAB PO SCH (09:55)
[2018-07-31] MEDS ORDERED: MAGNESIUM CITRATE 300 ML BTL PO ONE (12:00)
[2018-07-31 20:00] VITALS: BP 114/69; PULSE 66; RESP 18
[2018-07-31] MEDS: DOCUSATE SODIUM 100 MG CAP PO SCH (21:00)
[2018-08-01 02:00] VITALS: BP 106/69; PULSE 66; RESP 18
[2018-08-01] MEDS: oxyCODONE 15 MG TAB PO PRN ×3 (04:55→21:12)
[2018-08-01] MEDS: LORAZEPAM 2 MG INJ IV PRN ×2 (05:40→14:07)
[2018-08-01 08:30] VITALS: BP 112/73; RESP 18
[2018-08-01] MEDS: ESTRADIOL 1 MG TAB PO SCH ×2 (08:37→20:01)
[2018-08-01] MEDS: DOCUSATE SODIUM 100 MG CAP PO SCH ×2 (08:37→20:01)
[2018-08-01] MEDS: LAMOTRIGINE 25 MG TAB PO SCH ×3 (08:38→20:01)
[2018-08-01] MEDS: oxyCODONE (CR) 15 MG TAB [oxyCONTIN] PO SCH ×2 (08:39→20:05)
[2018-08-01] MEDS: ENOXAPARIN 40 MG/0.4 ML SYG SC SCH (08:39)
[2018-08-01] MEDS: ASPIRIN 81 MG TAB PO SCH (08:40)
--- NOTE | 2018-08-01 08:50 | PN ---
Date/Time of Note Date/Time of Note DATE: 08/01/18 TIME: 08:47 Assessment/Plan VTE Prophylaxis Risk score (from Nsg)>0 risk: 2 SCD applied (from Ns): No SCD contraindicated: patient refusal Pharmacological prophylaxis: heparin Lines/Catheters IV Catheter Type (from Nrsg): Saline Lock Urinary Cath still in place: No Assessment/Plan Problems: (1) Right sided weakness Status: Acute Comment: As noted in my prior notes of believe this represents what had previously been labeled Thursday night palsy from a positional issue. This will require several weeks of rehabilitation therapy. I put in the request for extended care facility evaluation yesterday and is being processed. (2) Chronic pain syndrome Status: Chronic Comment: Adequate control at this time. Please note the patient wants to be seen by pain management here at the hospital we have requested that (3) Reflex sympathetic dystrophy of left upper extremity Status: Chronic Comment: Improved with usage of lamotrigine. Historically he reports he did not do well with gabapentin or Lyrica or topiramate (4) Chronic low back pain with sciatica Status: Chronic Comment: Noted. Qualifiers: Back pain laterality: bilateral Sciatica laterality: bilateral sciatica (5) Osteoarthritis of knees, bilateral Status: Chronic Comment: Noted. Qualifiers: Osteoarthritis type: primary (6) Chronic neck pain Status: Chronic Comment: Noted. (7) Gender identity disorder in adult Status: Chronic Comment: Noted. Continue with therapeutic (8) [id number] transgender person Status: Chronic Comment: Noted. The therapeutics have been brought into line with current standards Result Diagram: 07/28/18 1021 07/28/18 1021 Subjective 24 Hr Interval Summary Free Text/Dictation Patient reports that his right arm reflex sympathetic dystrophy is actually slightly better otherwise no changes Constitutional: no complaints Respiratory: no complaints Cardiovascular: no complaints Gastrointestinal: no complaints Genitourinary: no complaints Exam/Review of Systems Exam Vitals Vital Signs Date Temp Pulse Resp B/P (MAP) Pulse Ox O2 O2 Flow FiO2 Time Delivery Rate 08/01/18 97.6 66 18 106/69 96 02:00 (81) 07/31/18 Room Air 08:00 Intake and Output 07/31/18 07/31/18 08/01/18 1515:00 23:00 07:00 IntakeIntake Total 920 ml 440 ml 1020 ml BalanceBalance 920 ml 440 ml 1020 ml Constitutional: alert, oriented Neck: supple, non-tender Respiratory: clear to auscultation, normal air movement Cardiovascular: regular rate and rhythm, nl pulses Gastrointestinal: soft, nl liver, spleen, non-tender Medications Medication Current Medications IV Flush (NS 3 ml) 3 ml PER PROTOCOL IV ; Start 07/25/18 at 04:00 Ondansetron HCl (Zofran Inj) 4 mg Q6H PRN IV NAUSEA/VOMITING; Start 07/25/18 at 04:00 Aspirin (Aspirin) 81 mg DAILY PO Last administered on 07/31/18 09:55; Admin Dose 81 MG; Start 07/25/18 at 09:00 Acetaminophen (Tylenol Tab) 650 mg Q6H PRN PO .PAIN 1-3 OR TEMP; Start 07/25/18 at 04:00 Estradiol (Estrace) 1 mg BID PO Last administered on 08/01/18 08:37; Admin Dose 1 MG; Start 07/25/18 at 21:00 Oxycodone HCl (Oxycontin) 30 mg BID PO Last administered on 08/01/18 08:39; Admin Dose 30 MG; Start 07/25/18 at 14:30 Enoxaparin Sodium (Lovenox) 40 mg DAILY SC Last administered on 07/31/18 09:53; Admin Dose 40 MG; Start 07/26/18 at 14:00 Lorazepam (Ativan) 2 mg Q6H PRN IV SEIZURES Last administered on 07/30/18 17:18 ; Admin Dose 2 MG; Start 07/26/18 at 16:30 Oxycodone HCl (Roxicodone) 30 mg Q6H PRN PO MODERATE PAIN LEVEL 4-6 Last administered on 08/01/18 04:55; Admin Dose 30 MG; Start 07/28/18 at 14:30 Diazepam (Valium) 2 mg Q6H PRN PO ANXIETY Last administered on 07/31/18 19:27; Admin Dose 2 MG; Start 07/28/18 at 14:30 Lorazepam (Ativan) 1 mg Q4H PRN IV ANXIETY Last administered on 08/01/18 05:40; Admin Dose 1 MG; Start 07/30/18 at 22:30 Docusate Sodium (Colace) 200 mg BID PO Last administered on 08/01/18at 08:37; Admin Dose 200 MG; Start 07/31/18 at 21:00 Lamotrigine (Lamictal) 50 mg BID PO ; Start 08/01/18 at 09:00 SHAHAB VARGAS MD Aug 01, 2018 08:50
[2018-08-01] MEDS: DIAZEPAM 2 MG TAB PO PRN ×2 (09:01→20:05)
[2018-08-01 15:00] VITALS: BP 104/74; RESP 16
[2018-08-01 20:23] VITALS: BP 141/50; PULSE 54; RESP 18
[2018-08-01] MEDS: LORAZEPAM 1 MG TAB PO PRN (22:38)
[2018-08-02] MEDS: DIAZEPAM 2 MG TAB PO PRN ×3 (02:17→15:07)
[2018-08-02 02:36] VITALS: BP 101/54; PULSE 59; RESP 18
[2018-08-02] MEDS: oxyCODONE 15 MG TAB PO PRN ×3 (03:02→15:07)
[2018-08-02] MEDS: LORAZEPAM 1 MG TAB PO PRN ×2 (05:49→10:53)
[2018-08-02] MEDS: ESTRADIOL 1 MG TAB PO SCH ×2 (08:42→20:56)
[2018-08-02] MEDS: DOCUSATE SODIUM 100 MG CAP PO SCH ×2 (08:43→20:57)
[2018-08-02] MEDS: ASPIRIN 81 MG TAB PO SCH (08:43)
[2018-08-02] MEDS: LAMOTRIGINE 25 MG TAB PO SCH ×2 (08:43→20:56)
[2018-08-02] MEDS: ENOXAPARIN 40 MG/0.4 ML SYG SC SCH (08:44)
[2018-08-02] MEDS: oxyCODONE (CR) 15 MG TAB [oxyCONTIN] PO SCH ×2 (10:04→20:57)
--- NOTE | 2018-08-02 12:33 | CONS ---
Assessment/Plan Assessment/Plan Hospital Course 53 yo transgender female w/ prior Hx of traumatic subdural, and other comorbidities, who presents for evaluation of right sided weakness.. The patient is not particularly straightforward about the chronicity of her Sx.. Multiple radiculopathy is considered.. An alternative consideration is seizure w/ Lennox's paralysis..However, EEG is without epileptiform activity. MRI brain was reassuringly negative for acute intracranial pathology, though notable for remote post-op changes.. MRI spine showed only mild to moderate degenerative changes UTI+ UDS + benzos and opiates P: Will defer AED Tx for now PT/OT as necessary Other medical management per primary Neurologically cleared for d/c when medically able Consultation Date/Type/Reason Admit Date/Time Jul 26, 2018 at 15:46 Type of Consult Neurology Requesting Provider: RM BUSTILLOS MD Date/Time of Note DATE: 08/02/18 TIME: 12:32 Exam Vital Signs Vitals Vital Signs Date Temp Pulse Resp B/P (MAP) Pulse Ox O2 O2 Flow FiO2 Time Delivery Rate 08/02/18 98.7 59 18 101/54 96 02:36 (70) 07/31/18 Room Air 08:00 Intake and Output 08/01/18 08/01/18 08/02/18 1515:00 23:00 07:00 IntakeIntake Total 960 ml 960 ml 240 ml OutputOutput Total 2000 ml BalanceBalance 960 ml 960 ml -1760 ml HODA WORTHINGTON NP Aug 02, 2018 12:32
--- NOTE | 2018-08-02 13:02 | CONS ---
Assessment/Plan Assessment/Plan Hospital Course 53 yo transgender female w/ prior Hx of traumatic subdural, and other comorbidities, who presents for evaluation of right sided weakness.. The patient is not particularly straightforward about the chronicity of her Sx.. Multiple radiculopathy is considered.. An alternative consideration is seizure w/ Lennox's paralysis..However, EEG is without epileptiform activity. MRI brain was reassuringly negative for acute intracranial pathology, though notable for remote post-op changes.. MRI spine showed only mild to moderate degenerative changes UTI+ UDS + benzos and opiates P: Will defer AED Tx for now PT/OT as necessary Other medical management per primary Neurologically cleared for d/c when medically able Consultation Date/Type/Reason Admit Date/Time Jul 26, 2018 at 15:46 Type of Consult Neurology Reason for Consultation weakness Requesting Provider: RM BUSTILLOS MD Date/Time of Note DATE: 08/02/18 TIME: 13:01 24 HR Interval Summary Free Text/Dictation Continues acute care Exam Vital Signs Vitals Vital Signs Date Temp Pulse Resp B/P (MAP) Pulse Ox O2 O2 Flow FiO2 Time Delivery Rate 08/02/18 98.7 59 18 101/54 96 02:36 (70) 07/31/18 Room Air 08:00 Intake and Output 08/01/18 08/01/18 08/02/18 1515:00 23:00 07:00 IntakeIntake Total 960 ml 960 ml 240 ml OutputOutput Total 2000 ml BalanceBalance 960 ml 960 ml -1760 ml Exam PE: Gen Appearance: No Apparent Distress HEENT: Normocephalic Cardiovascular: Regular rate Abdomen: Soft Extremities: Dry NE: The patient was alert and oriented. Language was normal. Fund of knowledge was normal. Pupils were equal and reactive to light. There was no afferent pupillary defect. Visual mock were normal. Funduscopic examination was limited. Extra-ocular movements were full. Ptosis was absent. There was no nystagmus. Facial sensation was normal. Face was symmetric with normal strength. Hearing was intact. Palate movements were normal. Neck strength was normal. There was normal tongue bulk and speed of movement. Tone was normal. Muscle bulk was normal. I did not see fasciculations. Arms and legs were weak on the right. Vibration sensation was normal. Temperature and pinprick sensation was normal. Rapid alternating movements were normal. There was no dysmetria. There was no intention tremor. Gait was deferred due to bedrest. Arm and leg reflexes were symmetric. Rosales's sign was absent. Plantar responses were flexor. ALLISON DUMONT Aug 02, 2018 13:02 HODA WORTHINGTON NP Aug 02, 2018 14:21
[2018-08-02 15:08] VITALS: BP 104/54; PULSE 75; RESP 17
--- NOTE | 2018-08-02 15:08 | PN ---
Date/Time of Note Date/Time of Note DATE: 08/02/18 TIME: 15:07 Assessment/Plan VTE Prophylaxis Risk score (from Ns)>0 risk: 3 SCD applied (from Ns): No SCD contraindicated: other Pharmacological prophylaxis: LMWH Lines/Catheters IV [facility] Saline Lock Urinary Cath still in place: No Assessment/Plan Hospital Course SUBJECTIVE:Doing well...No acute distress.. no fevers or chills overnight. OBJECTIVE: Vital signs-see below PHYSICAL EXAM: Constitutional: Well-developed, well-nourished, transgender male to female, no acute distress. HEENT: Head atraumatic and normocephalic. Eyes: Extraocular muscles intact. Anicteric sclerae. Pupils equal bilaterally, reactive to light. NECK: Supple without lymph node. CHEST: Clear and good breath sounds equally. No wheezing. No rhonchi. HEART: S1, S2. Regular rate and rhythm. ABDOMEN: Soft, nontender. Bowel sounds were present. EXTREMITIES: Full range of motion in all the extremities. No cyanosis, clubbing or edema. NEUROLOGIC: Alert and oriented x3. No focal deficit. No sensory deficit. PSYCHOSOCIAL: In a good mood. No signs of depression. INTEGUMENTARY: Moist mucous membranes. Good skin turgor, intact. ASSESSMENT AND PLAN: 53-year-old transgender male to female with history of subdural hematoma, status post left craniotomy, chronic pain with opioid dependency, admitted with right-sided weakness after slept in his car for 24 hours on one side. 1. Right sided weakness -Appreciate neurology follow-up who believes most likely multiple radiculopathy -Symptoms improved. Studies negative for acute intracranial pathologies. -Patient needs inpatient rehabilitation. 2. Chronic pain syndrome -Stable at present. Being followed by traffic line painter. 3.Reflex sympathetic dystrophy of left upper extremity -Improved with usage of lamotrigine. Historically he reports he did not do well with gabapentin or Lyrica or topiramate 4. Chronic low back pain with sciatica -No acute issues. 5. Osteoarthritis of knees, bilateral -Continue current management. 5. [id number] transgender person -On estradiol supplementation. Dosing was adjusted previously. DVT prophylaxis: Lovenox Due to prophylaxis: Not indicated Disposition: Patient need further rehabilitation and plan is to discharge to custodial facility once he is accepted to a place. Patient was seen in collaboration with Dr. Zavala. Exam/Review of Systems Exam Vitals Vital Signs Date Temp Pulse Resp B/P (MAP) Pulse Ox O2 O2 Flow FiO2 Time Delivery Rate 08/02/18 98.7 59 18 101/54 96 02:36 (70) 07/31/18 Room Air 08:00 Intake and Output 08/01/18 08/01/18 08/02/18 1515:00 23:00 07:00 IntakeIntake Total 960 ml 960 ml 240 ml OutputOutput Total 2000 ml BalanceBalance 960 ml 960 ml -1760 ml Medications Medication Current Medications IV Flush (NS 3 ml) 3 ml PER PROTOCOL IV ; Start 07/25/18 at 04:00 Ondansetron HCl (Zofran Inj) 4 mg Q6H PRN IV NAUSEA/VOMITING; Start 07/25/18 at 04:00 Aspirin (Aspirin) 81 mg DAILY PO Last administered on 08/02/18at 08:43; Admin Dose 81 MG; Start 07/25/18 at 09:00 Acetaminophen (Tylenol Tab) 650 mg Q6H PRN PO .PAIN 1-3 OR TEMP; Start 07/25/18 at 04:00 Estradiol (Estrace) 1 mg BID PO Last administered on 08/02/18 08:42; Admin Dose 1 MG; Start 07/25/18 at 21:00 Oxycodone HCl (Oxycontin) 30 mg BID PO Last administered on 08/02/18at 10:04; Admin Dose 30 MG; Start 07/25/18 at 14:30 Enoxaparin Sodium (Lovenox) 40 mg DAILY SC Last administered on 07/31/18at 09:53; Admin Dose 40 MG; Start 07/26/18 at 14:00 Lorazepam (Ativan) 2 mg Q6H PRN IV SEIZURES Last administered on 07/30/18 17:18; Admin Dose 2 MG; Start 07/26/18 at 16:30 Oxycodone HCl (Roxicodone) 30 mg Q6H PRN PO MODERATE PAIN LEVEL 4-6 Last a dministered on 08/02/18 09:01; Admin Dose 30 MG; Start 07/28/18 at 14:30 Diazepam (Valium) 2 mg Q6H PRN PO ANXIETY Last administered on 08/02/18 08:42; Admin Dose 2 MG; Start 07/28/18 at 14:30 Docusate Sodium (Colace) 200 mg BID PO Last administered on 08/02/18 08:43; Admin Dose 200 MG; Start 07/31/18 at 21:00 Lamotrigine (Lamictal) 50 mg BID PO Last administered on 08/02/18 08:43; Admin Dose 50 MG; Start 08/01/18 at 09:00 Lorazepam (Ativan) 1 mg Q4H PRN PO ANXIETY Last administered on 08/02/18 10:53; Admin Dose 1 MG; Start 08/01/18 at 21:30 MALIK CINTRON NP Aug 02, 2018 15:08
[2018-08-02 19:47] VITALS: BP 111/58; PULSE 56; RESP 18
[2018-08-03 01:16] VITALS: BP 121/81; PULSE 52; RESP 18
[2018-08-03] MEDS: DIAZEPAM 2 MG TAB PO PRN ×2 (01:23→16:22)
[2018-08-03] MEDS: oxyCODONE 15 MG TAB PO PRN ×3 (01:24→16:04)
[2018-08-03] MEDS: LORAZEPAM 1 MG TAB PO PRN ×2 (04:00→12:31)
--- NOTE | 2018-08-03 07:44 | CONS ---
Assessment/Plan Assessment/Plan Assessment/Plan (Daily) 1. Left-sided weakness, excessive sleepiness 2. Acute on chronic pain syndrome bilateral lower extremities lumbosacral spine. Radiculopathy secondary to #2 Past medical history of craniotomy #3 borderline personality I believe there is a high likelihood that this patient is unfortunately opioid dependent. There is a high probability that this patient has had a syncopal episode secondary to use of multiple different opioids and benzodiazepines. Especially since there is no objective evidence that patient has had a neurological event or focal neurological findings on examination. She needs to have ongoing treatment and education related to the use of her opioids and benzodiazepine and slowly decrease her dosages. I suggest off short acting opioids do not prescribe any opioids at the [facility] this patient is discharged or benzodiazepines she needs to be referred to a pain management physician or multi-disciplinary pain management program. Consultation Date/Type/Reason Admit Date/Time Jul 26, 2018 at 15:46 Date/Time of Note DATE: 08/03/18 TIME: 07:41 Hx of Present Illness Asked to see this 53-year-old female in pain management consultation. 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 Patient complains of chronic sciatic pain bilateral lower extremity presented to the emergency room with new onset of right-sided weakness without trauma or documented seizure activity.. Patient CT scan of the head done in the emergency room essentially no new findings old left parietal craniotomy otherwise normal noncontrast contrast CT scan of the brain no evidence of intracranial hemorrhage no evidence of recent infarct. MRI of the brain no evidence of acute ischemia, prior left parietal craniotomy with mild increased CSF space over the left cerebral conve xity and cerebellum left sphenoid and right maxillary sinusitis. Patient has already completed MRIs of the cervical spine lumbar spine and thoracic spines. Please refer to those written radiological report however no gross evidence of acute pathology. Patient states that she has lumbosacral spine with radiation to bilateral lower extremity denies nausea vomiting trauma. Describes the pain as 10/10 interferes with her activities including mobility sleep and mood. Medication treatments include combinations of different benzodiazepines and opioids including Valium 10 mg 2-3 times daily Lorazepam 2 mg every 6 hours as needed OxyContin 30 mg twice daily oxycodone 30 mg every 6 hours as needed. Patient was found down in the car and states that she had slept for some 16 hours he adamantly.denies overdosing any a combined above medications medical history as above drug history as above family history noncontributory she denies any anxiety coping skills and ability occupation has not been affected by her current pain patient has his never use distraction therapy for management of pain patient has had chronic pain for years. She has been seen by 2 different physicians who are prescribing benzodiazepines and opioids. The pain is referred to bilateral lower extremities is annoying intermittent radiculopathy lancinating pain in bilateral lower extremity is never pain-free. Any movements will make her pain worse whether does not interfere with her pain. Alleviation of her pain somewhat occurs with the use of multiple different above medications although she is somewhat unclear as to what she uses but clearly admits she uses different dosages at different times. Patterns of pain are not affected by her daily activities. Analgesics just lowers her pain threshold to approximately 7/10 he does not wake up at night with extreme pain no past medical history according to patient psychosocial issues. Denies any numbness or loss of muscle strength in bilateral lower extremities denies a recent history of febrile illness denies pelvic anesthesia incontinence of bowels or bladder denies a history of pain is described as chronic. Patient denies undergoing any surgical procedures in the past other than craniotomy states that she has had multiple epidural injections which have not alleviated her pain. She has no past medical history of childhood abuse, suicidal ideations, admissions to mental health fa cilities or altercation with the police or driving under the influence.. Once again patient freely admits she alternates the use of different opioids and benzodiazepines and alternates the dosages. Subjective hx not possible: other Constitutional: No no complaints, No improved, No chills, No diaphoresis, No disoriented, No febrile, No poor po, No requiring IVF, No requiring O2, No other Eyes: No no complaints, No pain, No discharge, No redness, No visual change, No other ENT: No no complaints, No bleeding, No pain, No congestion, No discharge, No dysphagia, No sore throat, No other Respiratory: No no complaints, No pain, No cough, No pleuritic pain, No shortness of breath, No sputum, No wheezing, No other Cardiovascular: No no complaints, No chest pain, No edema, No lightheadedness, No orthopenea, No palpitations, No paroxysmal nocturnal dyspnea, No other Gastrointestinal: No no complaints, No pain, No blood, No constipation, No decreased appetite, No diarrhea, No flatus, No nausea, No passing stool, No vomiting, No other Genitourinary: No no complaints, No bleeding, No dysuria, No discharge, No flank pain, No hematuria, No other Musculoskeletal: other (As per history of present illness) Skin: No no complaints, No bruising, No erythema, No laceration, No pruritis, No rash, No skin lesions, No other Neurologic: No no complaints, No confusion, No dizziness, No focal-weakness, No headache, No syncope, No seizure, No other Endocrine: No no complaints, No polyuria, No polydypsia, No dry skin, No temp intolerance, No other Lymphatic: No no complaints, No adenopathy, No tender nodes, No lymphadema, No other Psychological: anxiety Past Medical History Home Meds Reported Medications Morphine Sulfate* (Oramorph SR*) 30 Mg Tablet.sa, 30 MG PO Q12, TAB.SA 07/24/18 Spironolactone* (Spironolactone*) 100 Mg Tablet, 200 MG PO DAILY, TAB 07/24/18 Estradiol* (Estrace*) 2 Mg Tab, 8 MG PO DAILY, TAB 07/24/18 Oxycodone Hcl* (IR) (Oxycodone Hcl*) 30 Mg Tablet, 30 MG PO TID PRN for PAIN, TAB 07/24/18 Hydromorphone Hcl (Dilaudid) 8 Mg Tablet, 8 MG PO 08/21/12 Medications Current Medications IV Flush (NS 3 ml) 3 ml PER PROTOCOL IV ; Start 07/25/18 at 04:00 Ondansetron HCl (Zofran Inj) 4 mg Q6H PRN IV NAUSEA/VOMITING; Start 07/25/18 at 04:00 Aspirin (Aspirin) 81 mg DAILY PO Last administered on 08/02/18at 08:43; Admin Dose 81 MG; Start 07/25/18 at 09:00 Acetaminophen (Tylenol Tab) 650 mg Q6H PRN PO .PAIN 1-3 OR TEMP; Start 07/25/18 at 04:00 Estradiol (Estrace) 1 mg BID PO Last administered on 08/02/18at 20:56; Admin Dose 1 MG; Start 07/25/18 at 21:00 Oxycodone HCl (Oxycontin) 30 mg BID PO Last administered on 08/02/18 20:57; Admin Dose 30 MG; Start 07/25/18 at 14:30 Enoxaparin Sodium (Lovenox) 40 mg DAILY SC Last administered on 07/31/18 09:53; Admin Dose 40 MG; Start 07/26/18 at 14:00 Lorazepam (Ativan) 2 mg Q6H PRN IV SEIZURES Last administered on 07/30/18 17:18; Admin Dose 2 MG; Start 07/26/18 at 16:30 Oxycodone HCl (Roxicodone) 30 mg Q6H PRN PO MODERATE PAIN LEVEL 4-6 Last administered on 08/03/18 01:24; Admin Dose 30 MG; Start 07/28/18 at 14:30 Diazepam (Valium) 2 mg Q6H PRN PO ANXIETY Last administered on 08/03/18 01:23; Admin Dose 2 MG; Start 07/28/18 at 14:30 Docusate Sodium (Colace) 200 mg BID PO Last administered on 08/02/18 20:57; Admin Dose 200 MG; Start 07/31/18 at 21:00 Lamotrigine (Lamictal) 50 mg BID PO Last administered on 08/02/18 20:56; Admin Dose 50 MG; Start 08/01/18 at 09:00 Lorazepam (Ativan) 1 mg Q4H PRN PO ANXIETY Last administered on 08/03/18 04:00; Admin Dose 1 MG; Start 08/01/18 at 21:30 Allergies: Coded Allergies: ondansetron HCl (Verified Allergy, Mild, RASH, 08/21/12) codeine (Unverified Allergy, Unknown, 07/27/18) Uncoded Allergies: ANTI NAUSEA MEDS (Allergy, Unknown, 07/27/18) PAIN MEDS (Allergy, Unknown, 07/27/18) codein (Allergy, Unknown, 07/27/18) Social History Smoking Status: Current every day smoker Exam/Review of Systems Exam Vitals Vital Signs Date Temp Pulse Resp B/P (MAP) Pulse Ox O2 O2 Flow FiO2 Time Delivery Rate 08/03/18 98.0 52 18 121/81 100 01:16 (94) 08/02/18 Room Air 15:08 Intake and Output 08/02/18 08/02/18 08/03/18 1515:00 23:00 07:00 IntakeIntake Total 1320 ml 1000 ml BalanceBalance 1320 ml 1000 ml Constitutional: alert, oriented, well developed Psych: no complaints, nl mood/affect; No anxiety, No confusion, No depression, No suicidal, No other Head: No normocephalic, No atraumatic, No lacerations, No hematomas, No other Eyes: nl conjunctiva, EOMI, nl lids, nl sclera, PERRL; No icteric, No fundi, disc, No other ENMT: No nl external ears & nose, No nl lips & teeth, No nl nasal mucosa & septum, No mucosa pink and moist, No intubated, No tympanic membranes, No other Neck: No supple, No non-tender, No jvd, No bruits, No masses, No thyromegaly, No nuchal rigidity, No other Respiratory: No clear to auscultation, No normal air movement, No congested cough, No crackles/rales, No diminished breath sounds, No intercostal retraction, No labored breathing, No respirations, No tactile fremitus, No wheezing, No other Cardiovascular: No regular rate and rhythm, No nl pulses, No bruits, No diastolic murmur, No edema, No gallop, No irregular rhythm, No jugular venous distention (JVD), No murmurs/extra sounds, No rub, No systolic murmur, No S3, No S4, No other Extremities: other (Range of motion both lower extremities flexion extension bilateral ankles internal and external rotation intact flexion extension of both knees intact negative bilateral straight leg sign sensory completely within normal limits motor 5/5 throughout both lower extremities hair no loss flexion extension internal and external rotation rotation of both hips completely intact no gross evidence of ecchymosis mottling bounding bilateral lower extremity pulses.) Neurological: No FIBERGLASS ROVING WINDER II-XII intact, No nl mental status, No nl speech, No nl strength, No confused, No DTR's symmetric, No focal weakness, No lethargic, No numbness, No reflexes, No unresponsive, No other Medications Medication Current Medications IV Flush (NS 3 ml) 3 ml PER PROTOCOL IV ; Start 07/25/18 at 04:00 Ondansetron HCl (Zofran Inj) 4 mg Q6H PRN IV NAUSEA/VOMITING; Start 07/25/18 at 04:00 Aspirin (Aspirin) 81 mg DAILY PO Last administered on 08/02/18 08:43; Admin Dose 81 MG; Start 07/25/18 at 09:00 Acetaminophen (Tylenol Tab) 650 mg Q6H PRN PO .PAIN 1-3 OR TEMP; Start 07/25/18 at 04:00 Estradiol (Estrace) 1 mg BID PO Last administered on 08/02/18 20:56; Admin Dose 1 MG; Start 07/25/18 at 21:00 Oxycodone HCl (Oxycontin) 30 mg BID PO Last administered on 08/02/18 20:57; Admin Dose 30 MG; Start 07/25/18 at 14:30 Enoxaparin Sodium (Lovenox) 40 mg DAILY SC Last administered on 07/31/18 09:53; Admin Dose 40 MG; Start 07/26/18 at 14:00 Lorazepam (Ativan) 2 mg Q6H PRN IV SEIZURES Last administered on 07/30/18 17:18; Admin Dose 2 MG; Start 07/26/18 at 16:30 Oxycodone HCl (Roxicodone) 30 mg Q6H PRN PO MODERATE PAIN LEVEL 4-6 Last administered on 08/03/18 01:24; Admin Dose 30 MG; Start 07/28/18 at 14:30 Diazepam (Valium) 2 mg Q6H PRN PO ANXIETY Last administered on 08/03/18 01:23; Admin Dose 2 MG; Start 07/28/18 at 14:30 Docusate Sodium (Colace) 200 mg BID PO Last administered on 08/02/18 20:57; Admin Dose 200 MG; Start 07/31/18 at 21:00 Lamotrigine (Lamictal) 50 mg BID PO Last administered on 08/02/18 20:56; Admin Dose 50 MG; Start 08/01/18 at 09:00 Lorazepam (Ativan) 1 mg Q4H PRN PO ANXIETY Last administered on 08/03/18 04:00; Admin Dose 1 MG; Start 08/01/18 at 21:30 MORELIA DIXON Aug 03, 2018 07:44
[2018-08-03] MEDS: LAMOTRIGINE 25 MG TAB PO SCH (10:07)
[2018-08-03] MEDS: DOCUSATE SODIUM 100 MG CAP PO SCH (10:07)
[2018-08-03] MEDS: ASPIRIN 81 MG TAB PO SCH ×2 (10:07→11:33)
[2018-08-03] MEDS: oxyCODONE (CR) 15 MG TAB [oxyCONTIN] PO SCH ×2 (10:07→11:33)
[2018-08-03] MEDS: ESTRADIOL 1 MG TAB PO SCH (10:07)
[2018-08-03] MEDS: ENOXAPARIN 40 MG/0.4 ML SYG SC SCH (10:11)
--- NOTE | 2018-08-03 10:37 | CONS ---
Assessment/Plan Assessment/Plan Hospital Course 53 yo transgender female w/ prior Hx of traumatic subdural, and other comorbidities, who presents for evaluation of right sided weakness.. The patient is not particularly straightforward about the chronicity of her Sx.. Multiple radiculopathy is considered.. An alternative consideration is seizure w/ Lennox's paralysis..However, EEG is without epileptiform activity. MRI brain was reassuringly negative for acute intracranial pathology, though notable for remote post-op changes.. MRI spine showed only mild to moderate degenerative changes UTI+ UDS + benzos and opiates P: Will defer AED Tx for now PT/OT as necessary Other medical management per primary Will sign off'; please consult w/ additional ?s as necessary Consultation Date/Type/Reason Admit Date/Time Jul 26, 2018 at 15:46 Type of Consult Neurology Reason for Consultation weakness Requesting Provider: RM BUSTILLOS MD Date/Time of Note DATE: 08/03/18 TIME: 10:37 24 HR Interval Summary Free Text/Dictation Continues acute care Exam Vital Signs Vitals Vital Signs Date Temp Pulse Resp B/P (MAP) Pulse Ox O2 O2 Flow FiO2 Time Delivery Rate 08/03/18 98.0 52 18 121/81 100 01:16 (94) 08/02/18 Room Air 15:08 Intake and Output 08/02/18 08/02/18 08/03/18 1515:00 23:00 07:00 IntakeIntake Total 1320 ml 1000 ml BalanceBalance 1320 ml 1000 ml Exam PE: Gen Appearance: No Apparent Distress HEENT: Normocephalic Cardiovascular: Regular rate Abdomen: Soft Extremities: Dry NE: The patient was alert and oriented. Language was normal. Fund of knowledge was normal. Pupils were equal and reactive to light. There was no afferent pupillary defect. Visual mock were normal. Funduscopic examination was limited. Extra-ocular movements were full. Ptosis was absent. There was no nystagmus. Facial sensation was normal. Face was symmetric with normal strength. Hearing was intact. Palate movements were normal. Neck strength was normal. There was normal tongue bulk and speed of movement. Tone was normal. Muscle bulk was normal. I did not see fasciculations. Arms and legs were weak on the right. Vibration sensation was normal. Temperature and pinprick sensation was normal. Rapid alternating movements were normal. There was no dysmetria. There was no intention tremor. Gait was deferred due to bedrest. Arm and leg reflexes were symmetric. Rosales's sign was absent. Plantar responses were flexor. ALLISON DUMONT Aug 03, 2018 10:37 HODA WORTHINGTON NP Aug 03, 2018 14:12
[2018-08-03 12:22] VITALS: BP 105/61; PULSE 57; RESP 18
[2018-08-03] MEDS ORDERED: LAMO25TA PO (12:40)
[2018-08-03] MEDS ORDERED: ESTR1TAB23 PO (12:40)
[2018-08-03] MEDS ORDERED: ACET325T33 PO (12:40)
--- NOTE | 2018-08-03 12:41 | PDOCDIS ---
Discharge Instructions DIAGNOSIS Discharge Diagnosis 1. Right sided weakness, unremarkable CT and MRI brain/spine, continue PT/OT 2. Sinus bradycardia, asymptomatic 3. UTI, treated with fosfomycin 4. H/o head trauma, status post left-sided craniotomy: No acute issue 5. Male to female transgender person, on estrogen and spironolactone 6. Chronic pain syndrome, Under the care of Dr. Christy Jamil as an outpatient CONDITION [id number] Patient Condition: [id number] Stable HOME CARE INSTRUCTIONS: [id number] Diet Instructions: [id number] Regular FOLLOW UP/APPOINTMENTS Follow-up Plan PCP and neurology in one week [facility] follow up MALIK CINTRON NP Aug 03, 2018 12:41
--- NOTE | 2018-08-03 13:12 | DS ---
Date/Time of Note Date/Time of Note DATE: 08/03/18 TIME: 13:06 Discharge Summary Admission/Discharge Info Admit Date/Time Jul 26, 2018 at 15:46 Discharge Date/Time Discharge Diagnosis 1. Right sided weakness, likely multiple radiculopathy -Symptoms improved. Studies negative for acute intracranial pathologies. 2. Chronic pain syndrome, Under the care of Dr. Christy Jamil as an outpatient 3.Reflex sympathetic dystrophy of left upper extremity -Improved with usage of lamotrigine. 4. Chronic low back pain with sciatica 5. Osteoarthritis of knees, bilateral 6. Gwva-by-kyrcyh transgender person Patient Condition: Stable Consults ,neuro ,pain doctor Procedures 07/24/2018. Brain CT without contrast IMPRESSION: 1. Old left parietal craniotomy. 2. Otherwise normal noncontrast CT scan of the brain. 3. No intracranial hemorrhage. 4. No evidence of recent infarct. Call report: A call report of the findings was made to Dr. Clarke on 07/24/2018 at 1804 hours. RPTAT: QQ 07/26/2018. MRI brain. IMPRESSION: No evidence of acute ischemia. Prior left parietal craniotomy with mild increase CSF space over the left cerebral convexity and cerebellum. Left sphenoid and right maxillary sinusitis. [facility] 07/29/2018. Thoracic spine MRI. IMPRESSION: 1. Somewhat limited evaluation due to motion. 2. Thoracic spondylosis/degenerative enthesopathy as described above. 3. Mild chronic T9 compression deformity. 4. No significant central canal stenosis or foraminal narrowing identified. 5. Visualized thoracic cord within normal limits. 07/28/2018. Lumbar spine MRI. IMPRESSION: 1. Somewhat limited evaluation due to motion. 2. Lumbar spondylosis/degenerative enthesopathy as described above. 3. No significant central canal stenosis. 4. Mild to moderate bilateral foraminal narrowing at L5-S1. 07/29/2018. Cervical spine MRI IMPRESSION: 1. Somewhat limited evaluation due to motion. 2. Cervical spondylosis/degenerative enthesopathy described above. 3. No significant central canal stenosis identified. 4. Multilevel foraminal narrowing outlined in detail above. 5. Visualized cervical cord within normal limits. Hospital Course 53-year-old transgender male to female with history of subdural hematoma, status post left craniotomy, chronic pain with opioid dependency, admitted with right-sided weakness after slept in his car for 24 hours on one side. She had neurology follow-up and thought to be secondary to multiple radiculopathy and being slept on his side for 24 hours. Stroke ruled out. Patient symptoms improved. For Reflex sympathetic dystrophy of left upper extremity, he was continued on lamotrigine. Patient did well. At this time, labs and vital signs stable. She is stable for discharge to a long-term for further inpatient physical therapy and rehabilitation and patient was accepted. Approximately 60 minutes was spent in coordinating the discharge on this patient. Patient was seen in collaboration with Dr. Zavala. Home Meds Active Scripts Acetaminophen* (Tylenol*) 325 Mg Tablet, 650 MG PO Q6H PRN for .PAIN 1-3 OR TEMP, #30 TAB Prov:MALIK CINTRON NP 08/03/18 Estradiol* (Estrace*) 1 Mg Tablet, 1 MG PO BID, #30 TAB Prov:MALIK CINTRON NP 08/03/18 Lamotrigine* (Lamotrigine*) 25 Mg Tablet, 50 MG PO BID, #60 TAB Prov:MALIK CINTRON NP 08/03/18 Discontinued Reported Medications Morphine Sulfate* (Oramorph SR*) 30 Mg Tablet.sa, 30 MG PO Q12, TAB.SA 07/24/18 Spironolactone* (Spironolactone*) 100 Mg Tablet, 200 MG PO DAILY, TAB 07/24/18 Estradiol* (Estrace*) 2 Mg Tab, 8 MG PO DAILY, TAB 07/24/18 Oxycodone Hcl* (IR) (Oxycodone Hcl*) 30 Mg Tablet, 30 MG PO TID PRN for PAIN, TAB 07/24/18 Hydromorphone Hcl (Dilaudid) 8 Mg Tablet, 8 MG PO 08/21/12 Follow-up Plan PCP and neurology in one week [facility] follow up Primary Care Provider MALIK CINTRON NP Aug 03, 2018 13:12
[2018-08-03 16:45] VITALS: BP 111/63; PULSE 63; RESP 18
== END 2018-08-03 17:35 | DRG 74 ==
LOC: E/R 15:59 → 6WM 19:13 → INTOOBSV 19:13 → MERGE 07-26 15:46 → OBSVTOIN 07-26 15:46 → 2NE 07-31 01:07
PROVIDERS: ADMIT Internal Medicine; ATTEND Internal Medicine
DX: M54.10 Radiculopathy, site unspecified (principal); G90.512 Complex regional pain syndrome I of left upper limb; N30.00 Acute cystitis without hematuria; F11.20 Opioid dependence, uncomplicated; G89.4 Chronic pain syndrome; Z87.820 Personal history of traumatic brain injury; I95.9 Hypotension, unspecified; F64.9 Gender identity disorder, unspecified; M54.40 Lumbago with sciatica, unspecified side; M54.2 Cervicalgia; M17.0 Bilateral primary osteoarthritis of knee; R00.1 Bradycardia, unspecified; Z98.890 Other specified postprocedural states; F17.200 Nicotine dependence, unspecified, uncomplicated
CPT/HCPCS: 36415; 70450; 70496; 70498; 70551; 71045; 72141; 72146; 72148; 80048; 80053; 80061; 80307; 81001; 82550; 82553; 82962; 83001; 83036; 83735; 84100; 84403; 84443; 84484; 85025; 85610; 85730; 86803; 87086; 87340; 92610; 93005; 93306; 95819; 97110; 97116; 97162; 97530; 99217; G0378; J0696; J1650; J1885; J2060; J7040; Q9967